=== PATIENT | female | born 1945 | race Caucasian/White ===

== ENCOUNTER 2018-10-05 15:37 | Emergency (ER) | payer MEDICARE ==
[~2018-10-05] VITALS: Ht 165.1 cm; Wt 72.0 kg
[~2018-10-05 15:37] MED LIST: ACET-343 PO; ASPI-611 PO; ATOR20TA66 PO; CHOL100046 PO; DICY20TA17 PO; DILT120C51 PO; FOLI0.4T2 PO; GABA-530 PO; HYDR-3973 PO; MECL12.584 PO; MSC30T PO; ONDA4TAB6 PO; PANT40TA4 PO
[2018-10-05 15:44] VITALS: BP 149/53
== END 2018-10-05 16:56 | disposition home or self-care (01) ==
LOC: ER 15:37
DX: S92.355A Nondisplaced fracture of fifth metatarsal bone, left foot, initial encounter for closed fracture (principal); M19.90 Unspecified osteoarthritis, unspecified site; Z88.0 Allergy status to penicillin; Z88.5 Allergy status to narcotic agent; Z79.82 Long term (current) use of aspirin; Z79.899 Other long term (current) drug therapy; Z86.73 Personal history of transient ischemic attack (TIA), and cerebral infarction without residual deficits; Z95.1 Presence of aortocoronary bypass graft; Z98.890 Other specified postprocedural states; W18.09XA Striking against other object with subsequent fall, initial encounter; Y93.89 Activity, other specified; Y92.098 Other place in other non-institutional residence as the place of occurrence of the external cause; Y99.8 Other external cause status
CPT/HCPCS: 29515; 73630; 99284

== ENCOUNTER 2018-10-27 10:54 | Emergency (ER) | payer MEDICARE ==
[~2018-10-27] VITALS: Ht 177.8 cm; Wt 75.0 kg
[2018-10-27] MEDS ORDERED: ondansetron/PF 4mg/2ml inj IV ONE (12:05)
[2018-10-27] MEDS ORDERED: morphine 4 MG/ML inj SYRINge IV PRN (12:05)
[2018-10-27] MEDS ORDERED: ondansetron 4mg rapidly disintigrating tab PO ONE (12:25)
[2018-10-27] MEDS ORDERED: morphine 4 MG/ML inj SYRINge IM ONE (12:25)
[2018-10-27 12:39] LABS: BASOPHILS # (AUTO) 0.1 X10'3 (0-0.2); EOSINOPHILS # (AUTO) 0.3 X10'3 (0-0.9); HEMOGLOBIN 12.8 g/dl (12.0-16.0); LYMPHOCYTES # (AUTO) 5.6 X10'3 (1.1-4.8); NEUTROPHILS # (AUTO) 1.8 X10'3 (1.8-7.7)
[2018-10-27 12:40] LABS: BASOPHILS % (AUTO) 1.2 % (0-1); EOSINOPHILS % (AUTO) 3.4 % (0-6); LYMPHOCYTES % (AUTO) 66.5 % (21-51); MEAN CORPUSCULAR HEMOGLOBIN 30.7 PG (27.0-31.0); MEAN CORPUSCULAR HGB CONC 33.7 g/dL (33.0-36.5); MEAN CORPUSCULAR VOLUME 91.1 FL (78-98); MEAN PLATELET VOLUME 8.5 FL (7.4-10.4); MONOCYTES # (AUTO) 0.6 X10'3 (0-0.9); MONOCYTES % (AUTO) 7.7 % (2-12); NEUTROPHILS % (AUTO) 21.2 % (42-75); PLATELET COUNT 252 X10'3 (140-440); RED BLOOD COUNT 4.17 X10'6 (4.20-5.60); RED CELL DISTRIBUTION WIDTH 13.5 % (11.5-14.5); WHITE BLOOD COUNT 8.4 X10'3 (4.5-11.0)
[2018-10-27 12:51] LABS: ALANINE AMINOTRANSFERASE 18 U/L (12-78); ALBUMIN 3.5 G/DL (3.4-5.0); ALBUMIN/GLOBULIN RATIO 1.1 (1.1-1.5); ALKALINE PHOSPHATASE 74 IU/L (46-116); ANION GAP 11 (8-16); ASPARTATE AMINO TRANSFERASE 13 U/L (10-37); BILIRUBIN,TOTAL 0.5 MG/DL (0.1-1.0); BLOOD UREA NITROGEN 8 MG/DL (7-18); BUN/CREATININE RATIO 7.8 (6.6-38.0); CALCIUM 9.3 MG/DL (8.5-10.1); CHLORIDE 108 MMOL/L (99-107); CREATININE 1.02 MG/DL (0.40-0.90); GLUCOSE 98 MG/DL (70-104); POTASSIUM 3.7 MMOL/L (3.5-5.1); SODIUM 144 MMOL/L (135-145); TOTAL CARBON DIOXIDE 25.5 MMOL/L (24-32); TOTAL PROTEIN 6.8 G/DL (6.4-8.2); eGFR 53 ML/MIN
[2018-10-27 12:52] VITALS: BP 126/58
[2018-10-27 14:34] LABS: TOTAL CELLS COUNTED 100
[2018-10-27 14:38] LABS: PLATELET ESTIMATE NORMAL
[2018-10-27 14:39] LABS: SMUDGE CELLS 1+
== END 2018-10-27 13:42 | disposition home or self-care (01) ==
LOC: ER 10:54
DX: S09.8XXA Other specified injuries of head, initial encounter (principal); M19.90 Unspecified osteoarthritis, unspecified site; Z88.0 Allergy status to penicillin; Z88.1 Allergy status to other antibiotic agents; Z88.6 Allergy status to analgesic agent; Z79.82 Long term (current) use of aspirin; Z79.899 Other long term (current) drug therapy; Z86.73 Personal history of transient ischemic attack (TIA), and cerebral infarction without residual deficits; Z95.0 Presence of cardiac pacemaker; W18.09XA Striking against other object with subsequent fall, initial encounter; Y93.89 Activity, other specified; Y92.89 Other specified places as the place of occurrence of the external cause; Y99.8 Other external cause status
CPT/HCPCS: 36415; 70450; 71045; 80053; 83735; 83880; 84484; 85025; 93005; 96372; 99284; J2270

== ENCOUNTER 2018-10-28 12:17 | Emergency (ER) | payer MEDICARE ==
[~2018-10-28] VITALS: Ht 165.1 cm; Wt 63.0 kg
[2018-10-28] MEDS ORDERED: metoclopramide 5 mg/ml inj IV ONE (13:00)
[2018-10-28] MEDS ORDERED: diphenhydrAMINE 50 mg/ml inj IV ONE (13:00)
[2018-10-28] MEDS ORDERED: ketorolac tromethamine 15mg/ml inj. IV ONE (13:00)
[2018-10-28 13:08] VITALS: BP 117/60
== END 2018-10-28 14:16 | disposition home or self-care (01) ==
LOC: ER 12:18
DX: G43.909 Migraine, unspecified, not intractable, without status migrainosus (principal); R11.2 Nausea with vomiting, unspecified; M19.90 Unspecified osteoarthritis, unspecified site; Z86.73 Personal history of transient ischemic attack (TIA), and cerebral infarction without residual deficits; Z98.890 Other specified postprocedural states; Z95.0 Presence of cardiac pacemaker; Z88.0 Allergy status to penicillin; Z88.2 Allergy status to sulfonamides; Z88.5 Allergy status to narcotic agent; Z79.82 Long term (current) use of aspirin; Z79.899 Other long term (current) drug therapy
CPT/HCPCS: 96374; 96375; 99284; J1200; J1885; J2765

== ENCOUNTER 2018-11-08 16:15 | Emergency (ER) | payer MEDICARE ==
[~2018-11-08] VITALS: Ht 165.1 cm; Wt 75.0 kg
[2018-11-08] MEDS ORDERED: morphine 4 MG/ML inj SYRINge IV ONE ×2 (17:20→19:30)
[2018-11-08 17:33] LABS: ALANINE AMINOTRANSFERASE 13 U/L (12-78); ALBUMIN 3.4 G/DL (3.4-5.0); ALBUMIN/GLOBULIN RATIO 0.9 (1.1-1.5); ALKALINE PHOSPHATASE 75 IU/L (46-116); ANION GAP 14 (8-16); ASPARTATE AMINO TRANSFERASE 7 U/L (10-37); BILIRUBIN,TOTAL 0.4 MG/DL (0.1-1.0); BLOOD UREA NITROGEN 16 MG/DL (7-18); BUN/CREATININE RATIO 17.2 (6.6-38.0); CALCIUM 8.7 MG/DL (8.5-10.1); CHLORIDE 103 MMOL/L (99-107); CREATININE 0.93 MG/DL (0.40-0.90); GLUCOSE 106 MG/DL (70-104); LIPASE 53 U/L (73-393); POTASSIUM 3.7 MMOL/L (3.5-5.1); SODIUM 141 MMOL/L (135-145); TOTAL PROTEIN 7.2 G/DL (6.4-8.2); eGFR 59 ML/MIN
--- NOTE | 2018-11-08 17:38 | NUR ---
PT IS 73YO FEMALE C/O LLQ PAIN SINCE TUESDAY, +N/V, VOMITED 4X TODAY, "TUESDAY I HAD DIARRHEA ALL DAY...ABOUT 10 TIMES", +CHILLS, NO DYSURIA, PT IS REFUSING IV START BY ME, REQUESTING ULTRASOUND, "I WOULD LIKE TO BE STUCK ONLY ONCE", DILSHAD OCAMPO AT BEDSIDE WITH ULTRASOUND
[2018-11-08 17:52] LABS: HEMOGLOBIN 13.1 g/dl (12.0-16.0); WHITE BLOOD COUNT 12.9 X10'3 (4.5-11.0)
[2018-11-08 17:53] LABS: BASOPHILS # (AUTO) 0.1 X10'3 (0-0.2); BASOPHILS % (AUTO) 0.7 % (0-1); EOSINOPHILS % (AUTO) 0.3 % (0-6); HEMATOCRIT 39.1 % (35.0-45.0); LYMPHOCYTES # (AUTO) 3.4 X10'3 (1.1-4.8); LYMPHOCYTES % (AUTO) 26.7 % (21-51); MEAN CORPUSCULAR HEMOGLOBIN 30.1 PG (27.0-31.0); MEAN CORPUSCULAR HGB CONC 33.5 g/dL (33.0-36.5); MEAN CORPUSCULAR VOLUME 89.9 FL (78-98); MEAN PLATELET VOLUME 8.9 FL (7.4-10.4); MONOCYTES # (AUTO) 1.3 X10'3 (0-0.9); MONOCYTES % (AUTO) 9.7 % (2-12); NEUTROPHILS # (AUTO) 8.1 X10'3 (1.8-7.7); NEUTROPHILS % (AUTO) 62.6 % (42-75); PLATELET COUNT 282 X10'3 (140-440); RED CELL DISTRIBUTION WIDTH 13.6 % (11.5-14.5)
--- NOTE | 2018-11-08 17:53 | NUR ---
UNABLE TO START IV WITH ULTRASOUND, DR CARDOSO AWARE
[2018-11-08 17:54] LABS: RED BLOOD COUNT 4.35 X10'6 (4.20-5.60)
[2018-11-08] MEDS ORDERED: iohexol 300mg/ml 100ml inj. ONE (18:15)
[2018-11-08 19:07] LABS: CLARITY,URINE SLIGHTLY CLOUDY (Clear); COLOR,URINE YELLOW (Yellow); GLUCOSE, URINE NEGATIVE (Neg); KETONES,URINE NEGATIVE (Neg); LEUKOCYTE ESTERASE ,URINE NEGATIVE (Neg); NITRITES, URINE NEGATIVE (Neg); OCCULT BLOOD,URINE TRACE-INTACT (Neg); PROTEIN,URINE NEGATIVE (Neg); UROBILINOGEN,URINE 0.2 E.U/dL (0.2-1.0)
[2018-11-08 19:10] LABS: UA COLLECTION TYPE CLN CATCH MIDSTREAM
[2018-11-08 19:28] LABS: BACTERIA,URINE 2+ /HPF (Neg); MUCUS STRANDS NONE SEEN /LPF (Neg); RBC,URINE 0-2 /HPF (0-2); SQUAMOUS EPITHELIAL CELL,UR MANY /LPF (FEW); WBC,URINE NONE SEEN /HPF (0-4)
[2018-11-08] MEDS ORDERED: magnesium citrate 296ml oral solution PO ONE (19:45)
[2018-11-08] MEDS ORDERED: ciprofloxacin 250mg tablet PO ONE (19:45)
[2018-11-08] MEDS ORDERED: metroNIDAZOLE 500mg tablet PO ONE (19:45)
[2018-11-08] MEDS ORDERED: metroNIDAZOLE-Flagyl 500mg/NS 100 ML IV ONE (19:50)
[2018-11-08] MEDS ORDERED: levoFLOXACIN-Levaquin 750MG/D5 150 ML IV ONE (19:50)
--- NOTE | 2018-11-08 20:12 | NUR ---
PT IS RESTING QUIETLY ON FAMILY ALECIA AT BEDSIDE,
--- NOTE | 2018-11-08 20:27 | NUR ---
PT HAS MAG CITRATE ORDERED, REPROTS SHE DOES NOT WANT TO TAKE IT WHILE HERE AND WILL TAKE IT WHEN SHE GOES HOME. DR. MAI UPDATED.
--- NOTE | 2018-11-08 20:30 | NUR ---
DR. MAI UPDATED THAT PT REFUSED MAG CITRATE, PT IS DC READY , BUT MED WAIT CURRENTLY FOR IV MEDS.
--- NOTE | 2018-11-08 21:10 | NUR ---
PT C/O HEADACHE 09/30, ASKING FOR ASAEL, LEVAQUIN IS INFUSING VIA PUMP
[2018-11-08] MEDS ORDERED: acetaminophen 325mg tablet PO ONE (21:25)
--- NOTE | 2018-11-08 21:25 | NUR ---
Dr Ingram gave verbal order for tylenol 975mg PO x1, gave pt apple juice and karen crackers, edwin well, no n/v
[2018-11-08] MEDS ORDERED: CIPR-230 PO (22:05)
[2018-11-08] MEDS ORDERED: METR-159 PO (22:05)
[2018-11-08 22:42] VITALS: BP 143/72
== END 2018-11-08 22:44 | disposition home or self-care (01) ==
LOC: ER 16:16
DX: K52.9 Noninfective gastroenteritis and colitis, unspecified (principal); K59.00 Constipation, unspecified; G43.909 Migraine, unspecified, not intractable, without status migrainosus; M19.90 Unspecified osteoarthritis, unspecified site; Z86.73 Personal history of transient ischemic attack (TIA), and cerebral infarction without residual deficits; Z95.0 Presence of cardiac pacemaker; Z98.890 Other specified postprocedural states; Z87.891 Personal history of nicotine dependence; Z88.0 Allergy status to penicillin; Z88.2 Allergy status to sulfonamides; Z88.5 Allergy status to narcotic agent; Z79.82 Long term (current) use of aspirin; Z79.2 Long term (current) use of antibiotics; Z79.899 Other long term (current) drug therapy
CPT/HCPCS: 36415; 74177; 80053; 81001; 83690; 85025; 85610; 96365; 96367; 96375; 96376; 99284; J1956; J2270; J3490; Q9967

== ENCOUNTER 2018-11-13 13:41 | Observation (INO) | payer MEDICARE ==
[~2018-11-13] VITALS: Ht 160 cm; Wt 78.4 kg
[~2018-11-13 13:41] MED LIST changes: +CIPR-230 PO; +METR-159 PO
[2018-11-13] MEDS ORDERED: aspirin 81mg tab.chew PO ONE (13:50)
[2018-11-13] MEDS: nitroGLYCERIN 0.4mg SUBLingual tab SL PRN ×3 (14:05→14:17)
--- NOTE | 2018-11-13 14:12 | NUR ---
Pt reports chest pain decreased from 9 to 8 following first ntg sl dose. Second dose given now.
[2018-11-13 14:19] LABS: BASOPHILS # (AUTO) 0.1 X10'3 (0-0.2); BASOPHILS % (AUTO) 1.1 % (0-1); EOSINOPHILS # (AUTO) 0.2 X10'3 (0-0.9); EOSINOPHILS % (AUTO) 1.7 % (0-6); HEMATOCRIT 40.2 % (35.0-45.0); HEMOGLOBIN 13.9 g/dl (12.0-16.0); LYMPHOCYTES # (AUTO) 3.4 X10'3 (1.1-4.8); LYMPHOCYTES % (AUTO) 35.1 % (21-51); MEAN CORPUSCULAR HEMOGLOBIN 31.3 PG (27.0-31.0); MEAN CORPUSCULAR HGB CONC 34.6 g/dL (33.0-36.5); MEAN CORPUSCULAR VOLUME 90.4 FL (78-98); MEAN PLATELET VOLUME 8.5 FL (7.4-10.4); MONOCYTES # (AUTO) 1.3 X10'3 (0-0.9); MONOCYTES % (AUTO) 12.9 % (2-12); NEUTROPHILS # (AUTO) 4.8 X10'3 (1.8-7.7); NEUTROPHILS % (AUTO) 49.2 % (42-75); PLATELET COUNT 312 X10'3 (140-440); RED BLOOD COUNT 4.45 X10'6 (4.20-5.60); RED CELL DISTRIBUTION WIDTH 13.1 % (11.5-14.5); WHITE BLOOD COUNT 9.7 X10'3 (4.5-11.0)
[2018-11-13 14:36] LABS: ALANINE AMINOTRANSFERASE 18 U/L (12-78); ALBUMIN 3.5 G/DL (3.4-5.0); ALBUMIN/GLOBULIN RATIO 0.9 (1.1-1.5); ALKALINE PHOSPHATASE 74 IU/L (46-116); ANION GAP 8 (8-16); ASPARTATE AMINO TRANSFERASE 16 U/L (10-37); BILIRUBIN,TOTAL 0.3 MG/DL (0.1-1.0); CALCIUM 8.7 MG/DL (8.5-10.1); CHLORIDE 107 MMOL/L (99-107); CREATININE 0.98 MG/DL (0.40-0.90); GLUCOSE 85 MG/DL (70-104); MAGNESIUM 1.9 MG/DL (1.5-2.4); POTASSIUM 3.7 MMOL/L (3.5-5.1); SODIUM 141 MMOL/L (135-145); TOTAL CARBON DIOXIDE 25.9 MMOL/L (24-32); TOTAL PROTEIN 7.3 G/DL (6.4-8.2); eGFR 56 ML/MIN
[2018-11-13 14:41] LABS: BLOOD UREA NITROGEN 10 MG/DL (7-18); BUN/CREATININE RATIO 10.2 (6.6-38.0)
[2018-11-13] MEDS ORDERED: ondansetron/PF 4mg/2ml inj IV ONE (15:05)
[2018-11-13] MEDS ORDERED: morphine 4 MG/ML inj SYRINge IV ONE (15:05)
[2018-11-13] MEDS ORDERED: mag hydrox/Alum hydrox/simeth 30ml oral suspension PO PRN (15:55)
[2018-11-13] MEDS ORDERED: morphine 2 MG/ML inj. syringe IV PRN ×2 (15:55)
[2018-11-13] MEDS ORDERED: acetaminophen 325mg tablet PO PRN (15:55)
[2018-11-13] MEDS ORDERED: magnesium hydroxide 30ml (MOM) UD suspension PO PRN (15:55)
--- NOTE | 2018-11-13 16:02 | NUR ---
Pharmacist is going to speak with the patient regarding the medication reconcilliation for the admission process. Pt is aware of the plan of care including admission.
[2018-11-13 16:35] LABS: HEMOGLOBIN A1C 5.8 % (4.5-6.2)
[2018-11-13] MEDS ORDERED: METR500T PO (16:55)
[2018-11-13] MEDS ORDERED: CIPR500T5 PO (16:55)
[2018-11-13] MEDS ORDERED: aspirin/acetaminophen/caffeine tablet PO PRN (17:50)
[2018-11-13] MEDS ORDERED: HYDROcodone/acetaminophen 10/325mg tab PO PRN (17:55)
[2018-11-13] MEDS ORDERED: HYDROcodone/acetaminophen 5mg/325mg tablet PO PRN (17:55)
[2018-11-13] MEDS: HYDROcodone/acetaminophen 10/325mg tab PO PRN (18:22)
[2018-11-13] MEDS: dicyclomine 10 MG capsule PO SCH ×2 (19:31→20:05)
[2018-11-13] MEDS: morphine ER 30mg tablet PO SCH (20:05)
[2018-11-13] MEDS: pantoprazole 40mg Tablet.DR PO SCH (20:06)
[2018-11-13] MEDS: atorvastatin 20mg tablet PO SCH (20:06)
[2018-11-13 21:00] VITALS: BP 137/67
[2018-11-13] MEDS ORDERED: MELA3TAB64 PO (21:39)
--- NOTE | 2018-11-13 21:53 | NUR ---
I received patient report from Nolan ED RN. at 2035. Plan of care was discussed. Patient arrived via gurney with RN transporting. She was not in any apparent distress. Belongings were with the patient
[2018-11-13] MEDS: Melatonin 3mg tablet PO SCH (22:46)
[2018-11-14 00:23] VITALS: BP 115/50
[2018-11-14] MEDS: ondansetron/PF 4mg/2ml inj IV PRN ×2 (00:31→11:00)
[2018-11-14 03:15] VITALS: BP 144/60
--- NOTE | 2018-11-14 04:12 | NUR ---
0315 : pt found on floor by tech. Patient states that she felt dizzy on her way back from going to the toilet and fell. She states that she hit her head on the floor. Forehead, it is reddened medial near right eyebrow. VSS: 144/60 R 18, HR:69, 98RA. Neuro check was done. Patient also complains of left forearm hurting,. Bed alarm has been turned on, Dr notified. He told me to do neuro checks again in two hours. Did not want x-rays at this time. Tylenol given for headache. Will continue to monitor
--- NOTE | 2018-11-14 04:17 | NUR ---
Patient was educated on using the call light when needing to get up for any reason. Fall risk band was put on patients right wrist.
[2018-11-14] MEDS: HYDROcodone/acetaminophen 10/325mg tab PO PRN ×2 (05:22)
--- NOTE | 2018-11-14 06:30 | NUR ---
Patient in room [facility]. I have received report from TERRENCE Fernando and had the opportunity to ask questions and assume patient care.
--- NOTE | 2018-11-14 06:46 | NUR ---
Problems reprioritized. Patient report given, questions answered & plan of care reviewed with TERRENCE Arcos and TERRENCE Diaz.
[2018-11-14 07:26] VITALS: BP 111/60
[2018-11-14] MEDS ORDERED: HYDROcodone/acetaminophen 10/325mg tab PO SCH (08:00)
[2018-11-14] MEDS ORDERED: meclizine 12.5mg tablet PO PRN (08:55)
[2018-11-14 09:00] VITALS: BP_SYST 113; BP_SYST 118; BP_SYST 120; BP_DIAS 65; BP_DIAS 69; BP_DIAS 88
[2018-11-14] MEDS: dicyclomine 10 MG capsule PO SCH ×2 (09:10→19:32)
[2018-11-14] MEDS: pantoprazole 40mg Tablet.DR PO SCH ×2 (09:11→19:32)
[2018-11-14] MEDS: folic acid 0.4mg tablet PO SCH (09:11)
[2018-11-14] MEDS: vitamin D (cholecalciferol) 1,000 unit tablet PO SCH (09:12)
[2018-11-14] MEDS: aspirin 81mg tab.chew PO SCH (09:12)
[2018-11-14] MEDS: morphine ER 30mg tablet PO SCH ×2 (09:12→19:31)
[2018-11-14] MEDS: diltiazem CD 120mg capsule (once-daily) PO SCH (09:13)
[2018-11-14 11:29] VITALS: BP 135/63
--- NOTE | 2018-11-14 14:04 | NUR ---
Malnutrition consult: Pt seen at bedside reports low appetite x months with wt loss of 20-30 lbs in two months. Pt reports UBW of 110 lbs however per documented wt hx UBW is around 158 lbs, patient is currently 172 lbs. Unsure if pt truly had any wt loss based on past documented weights. Pt currently on heart healthy diet documented with 25% PO intake of meal and 100% PO intake of milk at breakfast. Pt reports N/V, receiving Zofran PRN last given today. Pt denies ONS, Ensure pudding, gelatin, or any food preferences at this time other than requests no bananas, d/w dietary. Pt with no decrease in muscle strength or edema. Pt with no visible fat or muscle wasting. Pt currently lacks a minimum of two criteria for malnutrition. Pt denies food allergies or difficulty chewing/swallowing. LBM 11/13. Pt reports previously with diarrhea x 5 days however now resolved. Pt provided with verbal nutrition therapy for diarrhea and RD contact information. Will continue to follow. Addendum: 11/14/18 at [address] Amended: Links added.
--- NOTE | 2018-11-14 18:37 | NUR ---
Problems reprioritized. Patient report given, questions answered & plan of care reviewed with Prudence RN.
--- NOTE | 2018-11-14 18:46 | NUR ---
Patient in room [facility]. I have received report from Josselyn OCAMPO and had the opportunity to ask questions and assume patient care. Patient just finished having dinner and is pleasant and shows no sign of discomfort.
[2018-11-14 19:00] VITALS: BP 120/57
[2018-11-14] MEDS: atorvastatin 20mg tablet PO SCH (21:52)
[2018-11-14] MEDS: Melatonin 3mg tablet PO SCH (21:52)
[2018-11-15] VITALS: BP_SYST 101; BP_SYST 124; BP_SYST 132; BP_DIAS 53; BP_DIAS 62; BP_DIAS 64
--- NOTE | 2018-11-15 06:26 | NUR ---
Patient in room [facility]. I have received report from TERRENCE Lemus and had the opportunity to ask questions and assume patient care.
--- NOTE | 2018-11-15 06:31 | NUR ---
Problems reprioritized. Patient report given, questions answered & plan of care reviewed with Yen OCAMPO. Patient went to use the bathroom and is now back in bed resting.
[2018-11-15 08:11] VITALS: BP 121/58
[2018-11-15] MEDS: aspirin 81mg tab.chew PO SCH (08:31)
[2018-11-15] MEDS: folic acid 0.4mg tablet PO SCH (08:32)
[2018-11-15] MEDS: pantoprazole 40mg Tablet.DR PO SCH (08:33)
[2018-11-15] MEDS: morphine ER 30mg tablet PO SCH (08:33)
[2018-11-15] MEDS: diltiazem CD 120mg capsule (once-daily) PO SCH (08:33)
[2018-11-15] MEDS: vitamin D (cholecalciferol) 1,000 unit tablet PO SCH (08:34)
[2018-11-15] MEDS: dicyclomine 10 MG capsule PO SCH (08:34)
--- NOTE | 2018-11-15 09:12 | NUR ---
Student Medication Administration: For this medication-pass time frame, all medication were reviewed, dispensed, administered and documented per hospital policy by Ja ARANGO [facility].
[2018-11-15 11:00] VITALS: BP 109/41
--- NOTE | 2018-11-15 17:33 | NUR ---
Patient discharged home via taxi and taken from unit via wheelchair with x1 staff. PIV removed with cannula intact. All belongings left with patient including discharge instructions. Patient stated an understanding of instructions. Patient was given time for questions and answers. Patient discharged was delayed due to waiting on a ride. Patient's was to pick patient up after dialysis but it ran long and then he had complications and this delayed his arrival. Patient stated not having anyone else that could come and get her and also stated not having any money for a taxi. So a taxi ride was provided for her. Patient discharged alert, oriented and in no apparent distress. No new prescriptions at time of discharge.
== END 2018-11-15 16:56 | disposition home or self-care (01) ==
LOC: ER 13:42 → SUR 3N 20:55
PROVIDERS: ADMIT Internal Medicine; ATTEND Internal Medicine
DX: R07.89 Other chest pain (principal); I10 Essential (primary) hypertension; E78.5 Hyperlipidemia, unspecified; I49.5 Sick sinus syndrome; G89.29 Other chronic pain; M19.90 Unspecified osteoarthritis, unspecified site; Z95.0 Presence of cardiac pacemaker; Z90.710 Acquired absence of both cervix and uterus; Z87.891 Personal history of nicotine dependence; Z86.73 Personal history of transient ischemic attack (TIA), and cerebral infarction without residual deficits; Z79.891 Long term (current) use of opiate analgesic; Z79.82 Long term (current) use of aspirin; Z79.899 Other long term (current) drug therapy; Z88.0 Allergy status to penicillin; Z88.5 Allergy status to narcotic agent
CPT/HCPCS: 36415; 71045; 80053; 83036; 83735; 83880; 84484; 85025; 87081; 93005; 96374; 96375; 96376; 99284; G0378; J2270; J2405; J8597

== ENCOUNTER 2019-06-25 15:11 | Emergency (ER) | payer MEDICARE ==
[~2019-06-25] VITALS: Ht 165.1 cm; Wt 69.1 kg
[~2019-06-25 15:11] MED LIST changes: -CIPR-230 PO; +CIPR500T5 PO; -GABA-530 PO; +MECL-184 PO; -MECL12.584 PO; +MELA3TAB39 PO; -METR-159 PO; +METR500T PO; -ONDA4TAB6 PO
[2019-06-25 15:36] LABS: BASOPHILS # (AUTO) 0.1 X10'3 (0-0.2); BASOPHILS % (AUTO) 0.7 % (0-1); EOSINOPHILS # (AUTO) 0.1 X10'3 (0-0.9); EOSINOPHILS % (AUTO) 1.3 % (0-6); HEMATOCRIT 44.1 % (35.0-45.0); HEMOGLOBIN 14.7 g/dl (12.0-16.0); LYMPHOCYTES # (AUTO) 3.6 X10'3 (1.1-4.8); LYMPHOCYTES % (AUTO) 41.2 % (21-51); MEAN CORPUSCULAR HGB CONC 33.3 g/dL (33.0-36.5); MEAN CORPUSCULAR VOLUME 93.1 FL (78-98); MEAN PLATELET VOLUME 8.5 FL (7.4-10.4); MONOCYTES # (AUTO) 0.7 X10'3 (0-0.9); MONOCYTES % (AUTO) 8.2 % (2-12); NEUTROPHILS # (AUTO) 4.3 X10'3 (1.8-7.7); NEUTROPHILS % (AUTO) 48.6 % (42-75); PLATELET COUNT 349 X10'3 (140-440); RED BLOOD COUNT 4.74 X10'6 (4.20-5.60); RED CELL DISTRIBUTION WIDTH 14.4 % (11.5-14.5); WHITE BLOOD COUNT 8.8 X10'3 (4.5-11.0)
[2019-06-25 15:50] LABS: ALANINE AMINOTRANSFERASE 12 U/L (12-78); ALBUMIN 3.8 G/DL (3.4-5.0); ALKALINE PHOSPHATASE 73 IU/L (46-116); ANION GAP 10 (8-16); ASPARTATE AMINO TRANSFERASE 13 U/L (10-37); BILIRUBIN,TOTAL 0.3 MG/DL (0.1-1.0); BLOOD UREA NITROGEN 10 MG/DL (7-18); BUN/CREATININE RATIO 10.4 (6.6-38.0); CALCIUM 9.5 MG/DL (8.5-10.1); CHLORIDE 102 MMOL/L (99-107); CREATININE 0.96 MG/DL (0.40-0.90); GLUCOSE 127 MG/DL (70-104); POTASSIUM 3.8 MMOL/L (3.5-5.1); SODIUM 137 MMOL/L (135-145); TOTAL CARBON DIOXIDE 25.2 MMOL/L (24-32); TOTAL PROTEIN 7.7 G/DL (6.4-8.2); eGFR 57 ML/MIN
[2019-06-25 16:10] VITALS: BP 143/78
[2019-06-25] MEDS ORDERED: ondansetron 4mg rapidly disintigrating tab PO ONE (16:25)
[2019-06-25] MEDS ORDERED: ONDA4TAB6 PO (16:45)
== END 2019-06-25 17:02 | disposition home or self-care (01) ==
LOC: ER 15:11
DX: R53.81 Other malaise (principal); R11.2 Nausea with vomiting, unspecified; J02.9 Acute pharyngitis, unspecified; R07.89 Other chest pain; R53.1 Weakness; R05 Cough; R10.9 Unspecified abdominal pain; M19.90 Unspecified osteoarthritis, unspecified site; Z86.73 Personal history of transient ischemic attack (TIA), and cerebral infarction without residual deficits; Z95.0 Presence of cardiac pacemaker; Z98.890 Other specified postprocedural states; Z88.0 Allergy status to penicillin; Z88.2 Allergy status to sulfonamides; Z88.5 Allergy status to narcotic agent; Z79.82 Long term (current) use of aspirin; Z79.899 Other long term (current) drug therapy
CPT/HCPCS: 36415; 71045; 80053; 84484; 85025; 93005; 99285

== ENCOUNTER 2019-07-21 16:07 | Emergency (ER) | payer MEDICARE ==
[~2019-07-21] VITALS: Ht 165.1 cm; Wt 63.6 kg
[~2019-07-21 16:07] MED LIST changes: +ONDA4TAB6 PO
[2019-07-21] MEDS ORDERED: normal saline 1000ml 1,000 ML IV ONE (18:00)
[2019-07-21] MEDS ORDERED: morphine 4 MG/ML inj SYRINge IV ONE ×2 (18:05→20:05)
[2019-07-21] MEDS ORDERED: ondansetron/PF 4mg/2ml inj IV ONE (18:05)
[2019-07-21 18:29] LABS: BASOPHILS # (AUTO) 0.1 X10'3 (0-0.2); EOSINOPHILS # (AUTO) 0.1 X10'3 (0-0.9); HEMOGLOBIN 14.4 g/dl (12.0-16.0); MONOCYTES # (AUTO) 0.9 X10'3 (0-0.9); MONOCYTES % (AUTO) 9.2 % (2-12); NEUTROPHILS # (AUTO) 3.6 X10'3 (1.8-7.7); PLATELET COUNT 331 X10'3 (140-440)
[2019-07-21 18:31] LABS: BASOPHILS % (AUTO) 1.2 % (0-1); EOSINOPHILS % (AUTO) 0.8 % (0-6); HEMATOCRIT 42.9 % (35.0-45.0); LYMPHOCYTES % (AUTO) 51.8 % (21-51); MEAN CORPUSCULAR HEMOGLOBIN 31.6 PG (27.0-31.0); MEAN CORPUSCULAR HGB CONC 33.5 g/dL (33.0-36.5); MEAN CORPUSCULAR VOLUME 94.4 FL (78-98); MEAN PLATELET VOLUME 8.1 FL (7.4-10.4); RED BLOOD COUNT 4.54 X10'6 (4.20-5.60); RED CELL DISTRIBUTION WIDTH 13.8 % (11.5-14.5); WHITE BLOOD COUNT 9.7 X10'3 (4.5-11.0)
[2019-07-21 18:45] LABS: ALANINE AMINOTRANSFERASE 28 U/L (12-78); ALBUMIN 4.3 G/DL (3.4-5.0); ALBUMIN/GLOBULIN RATIO 1.1 (1.1-1.5); ALKALINE PHOSPHATASE 69 IU/L (46-116); ANION GAP 9 (8-16); ASPARTATE AMINO TRANSFERASE 20 U/L (10-37); BILIRUBIN,TOTAL 0.6 MG/DL (0.1-1.0); BLOOD UREA NITROGEN 16 MG/DL (7-18); BUN/CREATININE RATIO 17.2 (6.6-38.0); CALCIUM 10.6 MG/DL (8.5-10.1); CHLORIDE 96 MMOL/L (99-107); CREATININE 0.93 MG/DL (0.40-0.90); GLUCOSE 112 MG/DL (70-104); LIPASE 259 U/L (73-393); POTASSIUM 4.1 MMOL/L (3.5-5.1); SODIUM 132 MMOL/L (135-145); TOTAL CARBON DIOXIDE 26.7 MMOL/L (24-32); TOTAL PROTEIN 8.1 G/DL (6.4-8.2); eGFR 59 ML/MIN
[2019-07-21 19:26] LABS: CLARITY,URINE SLIGHTLY CLOUDY (Clear); COLOR,URINE YELLOW (Yellow); GLUCOSE, URINE NEGATIVE (Neg); KETONES,URINE NEGATIVE (Neg); LEUKOCYTE ESTERASE ,URINE NEGATIVE (Neg); NITRITES, URINE NEGATIVE (Neg); OCCULT BLOOD,URINE TRACE-INTACT (Neg); PROTEIN,URINE NEGATIVE (Neg); UROBILINOGEN,URINE 0.2 E.U/dL (0.2-1.0)
[2019-07-21 19:31] LABS: UA COLLECTION TYPE CLN CATCH MIDSTREAM
[2019-07-21 19:32] LABS: BACTERIA,URINE FEW /HPF (Neg); RBC,URINE 0-2 /HPF (0-2); SQUAMOUS EPITHELIAL CELL,UR MODERATE /LPF (FEW); WBC,URINE 0-4 /HPF (0-4)
[2019-07-21] MEDS ORDERED: HYDR-4383 PO (20:43)
[2019-07-21] MEDS ORDERED: ONDA4TAB6 PO (20:43)
[2019-07-21] MEDS ORDERED: proCHLORperazine 10 MG/2 ml inj IM ONE ×2 (20:50)
[2019-07-21] MEDS ORDERED: diphenhydrAMINE 50 mg/ml inj IM ONE ×2 (20:50)
[2019-07-21 20:55] VITALS: BP 149/77
== END 2019-07-21 21:01 | disposition home or self-care (01) ==
LOC: ER 16:08
DX: K52.9 Noninfective gastroenteritis and colitis, unspecified (principal); G43.909 Migraine, unspecified, not intractable, without status migrainosus; M19.90 Unspecified osteoarthritis, unspecified site; R42 Dizziness and giddiness; Z95.0 Presence of cardiac pacemaker; Z98.890 Other specified postprocedural states; Z88.0 Allergy status to penicillin; Z88.2 Allergy status to sulfonamides; Z88.5 Allergy status to narcotic agent; Z79.82 Long term (current) use of aspirin; Z79.899 Other long term (current) drug therapy
CPT/HCPCS: 71045; 73560; 74176; 80053; 81001; 83690; 84484; 85025; 93005; 96361; 96372; 96374; 96375; 96376; 99285; J0780; J1200; J2270; J2405; J7030

== ENCOUNTER 2019-08-13 13:26 | Emergency (ER) | payer MEDICARE ==
[~2019-08-13] VITALS: Ht 165.1 cm; Wt 65.9 kg
[~2019-08-13 13:26] MED LIST changes: +HYDR-4383 PO
[2019-08-13 15:17] LABS: BASOPHILS # (AUTO) 0.1 X10'3 (0-0.2); EOSINOPHILS # (AUTO) 0.2 X10'3 (0-0.9); LYMPHOCYTES # (AUTO) 4.4 X10'3 (1.1-4.8); MONOCYTES # (AUTO) 0.7 X10'3 (0-0.9); RED CELL DISTRIBUTION WIDTH 12.8 % (11.5-14.5)
[2019-08-13 15:20] LABS: BASOPHILS % (AUTO) 1.2 % (0-1); EOSINOPHILS % (AUTO) 2.1 % (0-6); HEMATOCRIT 41.1 % (35.0-45.0); HEMOGLOBIN 13.8 g/dl (12.0-16.0); LYMPHOCYTES % (AUTO) 58.9 % (21-51); MEAN CORPUSCULAR HEMOGLOBIN 31.5 PG (27.0-31.0); MEAN CORPUSCULAR HGB CONC 33.5 g/dL (33.0-36.5); MEAN PLATELET VOLUME 8.5 FL (7.4-10.4); MONOCYTES % (AUTO) 9.9 % (2-12); NEUTROPHILS # (AUTO) 2.1 X10'3 (1.8-7.7); NEUTROPHILS % (AUTO) 27.9 % (42-75); PLATELET COUNT 282 X10'3 (140-440); RED BLOOD COUNT 4.37 X10'6 (4.20-5.60); WHITE BLOOD COUNT 7.4 X10'3 (4.5-11.0)
[2019-08-13 15:30] LABS: ALANINE AMINOTRANSFERASE 20 U/L (12-78); ALBUMIN 3.8 G/DL (3.4-5.0); ALBUMIN/GLOBULIN RATIO 1.1 (1.1-1.5); ALKALINE PHOSPHATASE 67 IU/L (46-116); ANION GAP 10 (8-16); ASPARTATE AMINO TRANSFERASE 17 U/L (10-37); BILIRUBIN,TOTAL 0.4 MG/DL (0.1-1.0); BLOOD UREA NITROGEN 10 MG/DL (7-18); BUN/CREATININE RATIO 10.6 (6.6-38.0); CALCIUM 9.1 MG/DL (8.5-10.1); CHLORIDE 104 MMOL/L (99-107); CREATININE 0.94 MG/DL (0.40-0.90); GLUCOSE 96 MG/DL (70-104); POTASSIUM 4.1 MMOL/L (3.5-5.1); SODIUM 141 MMOL/L (135-145); TOTAL CARBON DIOXIDE 26.7 MMOL/L (24-32); TOTAL PROTEIN 7.4 G/DL (6.4-8.2); eGFR 59 ML/MIN
[2019-08-13 15:46] LABS: PLATELET ESTIMATE NORMAL; TOTAL CELLS COUNTED 100
[2019-08-13] MEDS ORDERED: dexamethasone sod phosphate 10mg/ml inj IV STA (17:33)
[2019-08-13] MEDS ORDERED: normal saline 1000ML IV soln IVB ONE (17:35)
[2019-08-13] MEDS ORDERED: diphenhydrAMINE 50 mg/ml inj IV ONE (17:35)
[2019-08-13] MEDS ORDERED: proCHLORperazine 10 MG/2 ml inj IV ONE (17:35)
[2019-08-13] MEDS ORDERED: ketorolac tromethamine 15mg/ml inj. IV ONE (17:35)
[2019-08-13] MEDS ORDERED: morphine 4 MG/ML inj SYRINge IV ONE (19:25)
--- NOTE | 2019-08-13 19:26 | NUR ---
assumed care of patient while primary RN breaks. Pt c/o of headache and askin g for medication rated pain 7/10 . pt medicated as ordered with morphine .
--- NOTE | 2019-08-13 19:32 | NUR ---
Medication held as patient went to ct via [facility] chair will medicate patient once she returns from CT.
[2019-08-13 20:33] VITALS: BP 129/60
== END 2019-08-13 20:30 | disposition home or self-care (01) ==
LOC: ER 13:27
DX: G43.909 Migraine, unspecified, not intractable, without status migrainosus (principal); R42 Dizziness and giddiness; R11.2 Nausea with vomiting, unspecified; M19.90 Unspecified osteoarthritis, unspecified site; Z86.73 Personal history of transient ischemic attack (TIA), and cerebral infarction without residual deficits; Z95.0 Presence of cardiac pacemaker; Z88.0 Allergy status to penicillin; Z88.2 Allergy status to sulfonamides; Z88.5 Allergy status to narcotic agent; Z79.82 Long term (current) use of aspirin; Z79.899 Other long term (current) drug therapy
CPT/HCPCS: 36415; 70450; 71045; 80053; 84484; 85025; 93005; 96361; 96374; 96375; 99285; J0780; J1100; J1200; J1885; J2270; J7030

== ENCOUNTER 2019-09-09 16:15 | Emergency (ER) | payer MEDICARE ==
[~2019-09-09] VITALS: Ht 165.1 cm; Wt 65.9 kg
[2019-09-09 16:48] LABS: CLARITY,URINE CLEAR (Clear); COLOR,URINE YELLOW (Yellow); GLUCOSE, URINE NEGATIVE (Neg); KETONES,URINE NEGATIVE (Neg); LEUKOCYTE ESTERASE ,URINE NEGATIVE (Neg); NITRITES, URINE NEGATIVE (Neg); OCCULT BLOOD,URINE NEGATIVE (Neg); PH,URINE 7.5 (4.8-8.0); PROTEIN,URINE NEGATIVE (Neg); UROBILINOGEN,URINE 0.2 E.U/dL (0.2-1.0)
[2019-09-09 16:54] LABS: UA COLLECTION TYPE CLN CATCH MIDSTREAM
[2019-09-09 17:25] LABS: BASOPHILS # (AUTO) 0.1 X10'3 (0-0.2); BASOPHILS % (AUTO) 0.6 % (0-1); EOSINOPHILS % (AUTO) 0.3 % (0-6); HEMATOCRIT 44.5 % (35.0-45.0); HEMOGLOBIN 15.2 g/dl (12.0-16.0); LYMPHOCYTES # (AUTO) 3.6 X10'3 (1.1-4.8); LYMPHOCYTES % (AUTO) 35.8 % (21-51); MEAN CORPUSCULAR HEMOGLOBIN 31.4 PG (27.0-31.0); MEAN CORPUSCULAR HGB CONC 34.1 g/dL (33.0-36.5); MEAN CORPUSCULAR VOLUME 92.1 FL (78-98); MEAN PLATELET VOLUME 8.5 FL (7.4-10.4); MONOCYTES # (AUTO) 0.9 X10'3 (0-0.9); MONOCYTES % (AUTO) 9.4 % (2-12); NEUTROPHILS # (AUTO) 5.4 X10'3 (1.8-7.7); NEUTROPHILS % (AUTO) 53.9 % (42-75); PLATELET COUNT 367 X10'3 (140-440); RED BLOOD COUNT 4.83 X10'6 (4.20-5.60); RED CELL DISTRIBUTION WIDTH 13.1 % (11.5-14.5)
[2019-09-09 17:33] LABS: ALANINE AMINOTRANSFERASE 14 U/L (12-78); ALBUMIN 4.1 G/DL (3.4-5.0); ALBUMIN/GLOBULIN RATIO 1.1 (1.1-1.5); ALKALINE PHOSPHATASE 73 IU/L (46-116); ANION GAP 11 (8-16); ASPARTATE AMINO TRANSFERASE 8 U/L (10-37); BILIRUBIN,TOTAL 0.5 MG/DL (0.1-1.0); BLOOD UREA NITROGEN 8 MG/DL (7-18); BUN/CREATININE RATIO 8.2 (6.6-38.0); CALCIUM 9.6 MG/DL (8.5-10.1); CHLORIDE 104 MMOL/L (99-107); CREATININE 0.98 MG/DL (0.40-0.90); GLUCOSE 127 MG/DL (70-104); LIPASE 138 U/L (73-393); POTASSIUM 3.5 MMOL/L (3.5-5.1); SODIUM 139 MMOL/L (135-145); TOTAL CARBON DIOXIDE 23.9 MMOL/L (24-32); TOTAL PROTEIN 7.9 G/DL (6.4-8.2); eGFR 56 ML/MIN
[2019-09-09] MEDS ORDERED: ondansetron 4mg rapidly disintigrating tab PO ONE (19:00)
[2019-09-09] MEDS ORDERED: ketorolac trometh inj. 60 MG/2 ML VIAL IM ONE (19:00)
--- NOTE | 2019-09-09 19:09 | NUR ---
[phone]. Contact phone number for .
[2019-09-09] MEDS ORDERED: ONDA8TAB6 PO (20:03)
[2019-09-09] MEDS ORDERED: acetaminophen 325mg tablet PO ONE (20:05)
[2019-09-09] MEDS ORDERED: proCHLORperazine 10 MG/2 ml inj IM ONE (20:05)
[2019-09-09] MEDS ORDERED: SUMAtriptan succ. 6 MG/0.5ml vial SQ ONE (20:05)
[2019-09-09 20:36] VITALS: BP 177/88
== END 2019-09-09 21:08 | disposition home or self-care (01) ==
LOC: ER 16:16
DX: K52.9 Noninfective gastroenteritis and colitis, unspecified (principal); R11.10 Vomiting, unspecified; R19.7 Diarrhea, unspecified; G43.909 Migraine, unspecified, not intractable, without status migrainosus; M19.90 Unspecified osteoarthritis, unspecified site; Z86.73 Personal history of transient ischemic attack (TIA), and cerebral infarction without residual deficits; Z95.0 Presence of cardiac pacemaker; Z98.890 Other specified postprocedural states; Z88.0 Allergy status to penicillin; Z88.2 Allergy status to sulfonamides; Z88.5 Allergy status to narcotic agent; Z79.82 Long term (current) use of aspirin; Z79.899 Other long term (current) drug therapy
CPT/HCPCS: 36415; 74176; 80053; 81003; 83690; 85025; 96372; 99284; J0780; J1885; J3030

== ENCOUNTER 2019-09-18 10:32 | Emergency (ER) | payer MEDICARE ==
[~2019-09-18] VITALS: Ht 165.1 cm; Wt 69.1 kg
[~2019-09-18 10:32] MED LIST changes: +ONDA8TAB6 PO
[2019-09-18] MEDS ORDERED: ondansetron/PF 4mg/2ml inj IV ONE (12:25)
[2019-09-18] MEDS ORDERED: normal saline 1000ML IV soln IVB ONE ×2 (12:25→12:35)
[2019-09-18] MEDS ORDERED: dexamethasone sod phosphate 10mg/ml inj IV STA (12:33)
[2019-09-18] MEDS ORDERED: LORazepam 2 mg/ml vial IV ONE (12:35)
[2019-09-18] MEDS ORDERED: metoclopramide 5 mg/ml inj IV ONE (12:35)
[2019-09-18 12:42] LABS: BASOPHILS # (AUTO) 0.1 X10'3 (0-0.2); BASOPHILS % (AUTO) 1.3 % (0-1); EOSINOPHILS # (AUTO) 0.2 X10'3 (0-0.9); EOSINOPHILS % (AUTO) 3.3 % (0-6); HEMATOCRIT 42.3 % (35.0-45.0); HEMOGLOBIN 14.3 g/dl (12.0-16.0); LYMPHOCYTES # (AUTO) 3.2 X10'3 (1.1-4.8); LYMPHOCYTES % (AUTO) 45.6 % (21-51); MEAN CORPUSCULAR HEMOGLOBIN 31.2 PG (27.0-31.0); MEAN CORPUSCULAR HGB CONC 33.8 g/dL (33.0-36.5); MEAN CORPUSCULAR VOLUME 92.1 FL (78-98); MEAN PLATELET VOLUME 8.5 FL (7.4-10.4); MONOCYTES # (AUTO) 0.8 X10'3 (0-0.9); MONOCYTES % (AUTO) 11.5 % (2-12); NEUTROPHILS # (AUTO) 2.7 X10'3 (1.8-7.7); NEUTROPHILS % (AUTO) 38.3 % (42-75); PLATELET COUNT 284 X10'3 (140-440); RED BLOOD COUNT 4.59 X10'6 (4.20-5.60); RED CELL DISTRIBUTION WIDTH 13.7 % (11.5-14.5)
[2019-09-18 12:55] LABS: ALANINE AMINOTRANSFERASE 13 U/L (12-78); ALBUMIN 3.9 G/DL (3.4-5.0); ALKALINE PHOSPHATASE 75 IU/L (46-116); ANION GAP 7 (8-16); ASPARTATE AMINO TRANSFERASE 12 U/L (10-37); BILIRUBIN,TOTAL 0.2 MG/DL (0.1-1.0); BLOOD UREA NITROGEN 8 MG/DL (7-18); BUN/CREATININE RATIO 8.3 (6.6-38.0); CALCIUM 9.6 MG/DL (8.5-10.1); CHLORIDE 104 MMOL/L (99-107); CREATININE 0.96 MG/DL (0.40-0.90); GLUCOSE 96 MG/DL (70-104); SODIUM 137 MMOL/L (135-145); TOTAL CARBON DIOXIDE 25.8 MMOL/L (24-32); TOTAL PROTEIN 7.8 G/DL (6.4-8.2); eGFR 57 ML/MIN
[2019-09-18] MEDS ORDERED: ketorolac tromethamine 15mg/ml inj. IV ONE (13:20)
[2019-09-18] MEDS ORDERED: dexamethasone sod phosphate 10mg/ml inj PO STA (13:28)
[2019-09-18] MEDS ORDERED: ondansetron 4mg rapidly disintigrating tab PO ONE (13:30)
[2019-09-18] MEDS ORDERED: metoclopramide 10mg tablet PO ONE (13:30)
[2019-09-18] MEDS ORDERED: LORazepam 1 MG tablet PO ONE (13:30)
[2019-09-18] MEDS ORDERED: ketorolac trometh. 30mg/ml inj. IM ONE (13:35)
[2019-09-18 13:54] VITALS: BP 173/93
== END 2019-09-18 13:53 | disposition home or self-care (01) ==
LOC: ER 10:33
DX: G43.909 Migraine, unspecified, not intractable, without status migrainosus (principal); R42 Dizziness and giddiness; R55 Syncope and collapse; M19.90 Unspecified osteoarthritis, unspecified site; Z86.73 Personal history of transient ischemic attack (TIA), and cerebral infarction without residual deficits; Z95.0 Presence of cardiac pacemaker; Z98.890 Other specified postprocedural states; Z88.0 Allergy status to penicillin; Z88.2 Allergy status to sulfonamides; Z88.5 Allergy status to narcotic agent; Z79.82 Long term (current) use of aspirin; Z79.899 Other long term (current) drug therapy
CPT/HCPCS: 36415; 70450; 80053; 85025; 96372; 99284; J1100; J1885; J8597

== ENCOUNTER 2019-10-11 12:54 | Emergency (ER) | payer MEDICARE ==
[~2019-10-11] VITALS: Ht 165.1 cm; Wt 73.6 kg
[2019-10-11 13:23] VITALS: BP 164/97
[2019-10-11] MEDS ORDERED: DOXY100C76 PO (13:54)
== END 2019-10-11 14:06 | disposition home or self-care (01) ==
LOC: ER 12:54
DX: J32.9 Chronic sinusitis, unspecified (principal); J06.9 Acute upper respiratory infection, unspecified; G43.909 Migraine, unspecified, not intractable, without status migrainosus; M19.90 Unspecified osteoarthritis, unspecified site; Z86.73 Personal history of transient ischemic attack (TIA), and cerebral infarction without residual deficits; Z95.0 Presence of cardiac pacemaker; Z20.828 Contact with and (suspected) exposure to other viral communicable diseases; Z98.890 Other specified postprocedural states; Z88.0 Allergy status to penicillin; Z88.2 Allergy status to sulfonamides; Z88.5 Allergy status to narcotic agent; Z79.82 Long term (current) use of aspirin; Z79.899 Other long term (current) drug therapy
CPT/HCPCS: 36415; 87635; 99283

== ENCOUNTER 2019-10-17 15:22 | Emergency (ER) | payer MEDICARE ==
[~2019-10-17] VITALS: Ht 165.1 cm; Wt 75.0 kg
[~2019-10-17 15:22] MED LIST changes: +DOXY100C76 PO
[2019-10-17 16:06] LABS: BASOPHILS # (AUTO) 0.1 X10'3 (0-0.2); BASOPHILS % (AUTO) 1.1 % (0-1); EOSINOPHILS # (AUTO) 0.1 X10'3 (0-0.9); EOSINOPHILS % (AUTO) 0.6 % (0-6); HEMATOCRIT 40.3 % (35.0-45.0); HEMOGLOBIN 13.7 g/dl (12.0-16.0); LYMPHOCYTES # (AUTO) 4.6 X10'3 (1.1-4.8); MEAN CORPUSCULAR HEMOGLOBIN 30.9 PG (27.0-31.0); MEAN CORPUSCULAR HGB CONC 33.9 g/dL (33.0-36.5); MEAN CORPUSCULAR VOLUME 91.2 FL (78-98); MEAN PLATELET VOLUME 8.3 FL (7.4-10.4); MONOCYTES # (AUTO) 0.9 X10'3 (0-0.9); MONOCYTES % (AUTO) 10.2 % (2-12); NEUTROPHILS # (AUTO) 3.1 X10'3 (1.8-7.7); NEUTROPHILS % (AUTO) 35.1 % (42-75); PLATELET COUNT 373 X10'3 (140-440); RED BLOOD COUNT 4.42 X10'6 (4.20-5.60); WHITE BLOOD COUNT 8.8 X10'3 (4.5-11.0)
[2019-10-17 16:21] LABS: ALANINE AMINOTRANSFERASE 10 U/L (12-78); ALBUMIN 3.6 G/DL (3.4-5.0); ALBUMIN/GLOBULIN RATIO 0.9 (1.1-1.5); ALKALINE PHOSPHATASE 76 IU/L (46-116); ANION GAP 12 (8-16); ASPARTATE AMINO TRANSFERASE 16 U/L (10-37); BILIRUBIN,TOTAL 0.5 MG/DL (0.1-1.0); BLOOD UREA NITROGEN 10 MG/DL (7-18); BUN/CREATININE RATIO 10.9 (6.6-38.0); CALCIUM 9.4 MG/DL (8.5-10.1); CHLORIDE 103 MMOL/L (99-107); CREATININE 0.92 MG/DL (0.40-0.90); GLUCOSE 81 MG/DL (70-104); POTASSIUM 3.9 MMOL/L (3.5-5.1); SODIUM 139 MMOL/L (135-145); TOTAL CARBON DIOXIDE 23.7 MMOL/L (24-32); TOTAL PROTEIN 7.8 G/DL (6.4-8.2); eGFR 60 ML/MIN
[2019-10-17 17:16] LABS: TOTAL CELLS COUNTED 100
--- NOTE | 2019-10-17 17:16 | NUR ---
Loreta from [employer] called, pt.'s pacemaker functioning well, last episode was on 09/30/19 showing and episode of 1:1 SVT
[2019-10-17 17:19] LABS: PLATELET ESTIMATE NORMAL; ROULEAUX 1+
[2019-10-17 18:11] VITALS: BP 146/74
[2019-10-17] MEDS ORDERED: HYDROcodone/acetaminophen 5mg/325mg tablet PO ONE (18:15)
[2019-10-17] MEDS ORDERED: ondansetron 4mg rapidly disintigrating tab PO ONE (18:20)
== END 2019-10-17 18:38 | disposition home or self-care (01) ==
LOC: ER 15:23
DX: R07.89 Other chest pain (principal); G43.909 Migraine, unspecified, not intractable, without status migrainosus; M19.90 Unspecified osteoarthritis, unspecified site; Z86.73 Personal history of transient ischemic attack (TIA), and cerebral infarction without residual deficits; Z95.0 Presence of cardiac pacemaker; Z98.890 Other specified postprocedural states; Z88.0 Allergy status to penicillin; Z88.5 Allergy status to narcotic agent; Z88.2 Allergy status to sulfonamides; Z79.82 Long term (current) use of aspirin; Z79.2 Long term (current) use of antibiotics; Z79.899 Other long term (current) drug therapy
CPT/HCPCS: 36415; 70450; 71045; 80053; 83880; 84484; 85007; 85025; 93005; 99285

== ENCOUNTER 2019-10-19 15:14 | Emergency (ER) | payer MEDICARE ==
[~2019-10-19] VITALS: Ht 165.1 cm; Wt 75.0 kg
[2019-10-19 16:03] LABS: BASOPHILS # (AUTO) 0.1 X10'3 (0-0.2); EOSINOPHILS # (AUTO) 0.1 X10'3 (0-0.9); EOSINOPHILS % (AUTO) 0.9 % (0-6); HEMATOCRIT 41.3 % (35.0-45.0); HEMOGLOBIN 13.9 g/dl (12.0-16.0); LYMPHOCYTES # (AUTO) 4.1 X10'3 (1.1-4.8); LYMPHOCYTES % (AUTO) 47.4 % (21-51); MEAN CORPUSCULAR HEMOGLOBIN 31.1 PG (27.0-31.0); MEAN CORPUSCULAR HGB CONC 33.7 g/dL (33.0-36.5); MEAN CORPUSCULAR VOLUME 92.2 FL (78-98); MEAN PLATELET VOLUME 8.8 FL (7.4-10.4); MONOCYTES # (AUTO) 1.1 X10'3 (0-0.9); MONOCYTES % (AUTO) 12.5 % (2-12); NEUTROPHILS # (AUTO) 3.3 X10'3 (1.8-7.7); NEUTROPHILS % (AUTO) 38.2 % (42-75); PLATELET COUNT 330 X10'3 (140-440); RED BLOOD COUNT 4.48 X10'6 (4.20-5.60); RED CELL DISTRIBUTION WIDTH 13.1 % (11.5-14.5); WHITE BLOOD COUNT 8.6 X10'3 (4.5-11.0)
[2019-10-19 16:16] LABS: ALANINE AMINOTRANSFERASE 11 U/L (12-78); ALBUMIN 3.6 G/DL (3.4-5.0); ALBUMIN/GLOBULIN RATIO 0.9 (1.1-1.5); ALKALINE PHOSPHATASE 76 IU/L (46-116); ANION GAP 9 (8-16); ASPARTATE AMINO TRANSFERASE 13 U/L (10-37); BILIRUBIN,TOTAL 0.3 MG/DL (0.1-1.0); BLOOD UREA NITROGEN 9 MG/DL (7-18); BUN/CREATININE RATIO 9.8 (6.6-38.0); CALCIUM 9.4 MG/DL (8.5-10.1); CHLORIDE 103 MMOL/L (99-107); CREATININE 0.92 MG/DL (0.40-0.90); GLUCOSE 91 MG/DL (70-104); POTASSIUM 4.1 MMOL/L (3.5-5.1); SODIUM 138 MMOL/L (135-145); TOTAL CARBON DIOXIDE 25.6 MMOL/L (24-32); TOTAL PROTEIN 7.7 G/DL (6.4-8.2); eGFR 60 ML/MIN
[2019-10-19] MEDS ORDERED: normal saline 1000ml 1,000 ML IV ONE (16:45)
[2019-10-19] MEDS ORDERED: diphenhydrAMINE 50 mg/ml inj IV ONE (16:45)
[2019-10-19] MEDS ORDERED: proCHLORperazine 10 MG/2 ml inj IV ONE (16:45)
[2019-10-19 18:06] VITALS: BP 160/75
== END 2019-10-19 18:03 | disposition home or self-care (01) ==
LOC: ER 15:15
DX: R51 Headache (principal); R55 Syncope and collapse; M19.90 Unspecified osteoarthritis, unspecified site; Z86.73 Personal history of transient ischemic attack (TIA), and cerebral infarction without residual deficits; Z95.0 Presence of cardiac pacemaker; Z98.890 Other specified postprocedural states; Z88.0 Allergy status to penicillin; Z88.2 Allergy status to sulfonamides; Z88.5 Allergy status to narcotic agent; Z79.82 Long term (current) use of aspirin; Z79.899 Other long term (current) drug therapy
CPT/HCPCS: 36415; 71045; 80053; 83880; 84484; 85025; 93005; 96361; 96374; 96375; 99285; J0780; J1200; J7030

== ENCOUNTER 2019-11-19 16:10 | Emergency (ER) | payer MEDICARE ==
[~2019-11-19] VITALS: Ht 165.1 cm; Wt 76.9 kg
[~2019-11-19 16:10] MED LIST changes: -DOXY100C76 PO; -PANT40TA4 PO; +PANT40TA54 PO
[2019-11-19] MEDS ORDERED: ketorolac trometh. 30mg/ml inj. IV ONE (16:25)
[2019-11-19] MEDS ORDERED: normal saline 1000ml 1,000 ML IV ONE (16:25)
[2019-11-19] MEDS ORDERED: SUMAtriptan succ. 6 MG/0.5ml vial SQ ONE (16:25)
[2019-11-19] MEDS ORDERED: proCHLORperazine 10 MG/2 ml inj IV ONE (16:25)
[2019-11-19 17:10] LABS: BASOPHILS # (AUTO) 0.1 X10'3 (0-0.2); EOSINOPHILS # (AUTO) 0.1 X10'3 (0-0.9); EOSINOPHILS % (AUTO) 0.9 % (0-6); HEMATOCRIT 38.7 % (35.0-45.0); HEMOGLOBIN 13.1 g/dl (12.0-16.0); LYMPHOCYTES # (AUTO) 2.5 X10'3 (1.1-4.8); LYMPHOCYTES % (AUTO) 33.4 % (21-51); MEAN CORPUSCULAR HEMOGLOBIN 30.8 PG (27.0-31.0); MEAN CORPUSCULAR HGB CONC 33.9 g/dL (33.0-36.5); MEAN CORPUSCULAR VOLUME 90.7 FL (78-98); MEAN PLATELET VOLUME 8.7 FL (7.4-10.4); MONOCYTES # (AUTO) 0.7 X10'3 (0-0.9); MONOCYTES % (AUTO) 9.3 % (2-12); NEUTROPHILS # (AUTO) 4.2 X10'3 (1.8-7.7); NEUTROPHILS % (AUTO) 55.4 % (42-75); PLATELET COUNT 285 X10'3 (140-440); RED BLOOD COUNT 4.26 X10'6 (4.20-5.60); RED CELL DISTRIBUTION WIDTH 13.3 % (11.5-14.5); WHITE BLOOD COUNT 7.5 X10'3 (4.5-11.0)
[2019-11-19 17:24] LABS: ALANINE AMINOTRANSFERASE 14 U/L (12-78); ALBUMIN 3.6 G/DL (3.4-5.0); ALKALINE PHOSPHATASE 65 IU/L (46-116); ANION GAP 8 (8-16); ASPARTATE AMINO TRANSFERASE 14 U/L (10-37); BILIRUBIN,TOTAL 0.4 MG/DL (0.1-1.0); BLOOD UREA NITROGEN 6 MG/DL (7-18); BUN/CREATININE RATIO 6.4 (6.6-38.0); CALCIUM 9.2 MG/DL (8.5-10.1); CHLORIDE 105 MMOL/L (99-107); CREATININE 0.94 MG/DL (0.40-0.90); GLUCOSE 128 MG/DL (70-104); POTASSIUM 3.3 MMOL/L (3.5-5.1); SODIUM 140 MMOL/L (135-145); TOTAL CARBON DIOXIDE 26.7 MMOL/L (24-32); TOTAL PROTEIN 7.1 G/DL (6.4-8.2); eGFR 59 ML/MIN
[2019-11-19 17:57] VITALS: BP 145/66
== END 2019-11-19 17:59 | disposition home or self-care (01) ==
LOC: ER 16:11
DX: G43.909 Migraine, unspecified, not intractable, without status migrainosus (principal); M19.90 Unspecified osteoarthritis, unspecified site; R11.2 Nausea with vomiting, unspecified; Z95.0 Presence of cardiac pacemaker; Z98.890 Other specified postprocedural states; Z86.73 Personal history of transient ischemic attack (TIA), and cerebral infarction without residual deficits; Z88.0 Allergy status to penicillin; Z88.2 Allergy status to sulfonamides; Z88.5 Allergy status to narcotic agent; Z79.82 Long term (current) use of aspirin; Z79.899 Other long term (current) drug therapy
CPT/HCPCS: 36415; 71045; 80053; 83880; 84484; 85025; 93005; 96361; 96372; 96374; 96375; 99285; J0780; J1885; J7030; J3030

== ENCOUNTER 2020-02-18 16:33 | Emergency (ER) | payer MEDICARE ==
[~2020-02-18] VITALS: Ht 165.1 cm; Wt 73.6 kg
[2020-02-18 17:03] VITALS: BP 158/93
[2020-02-18] MEDS ORDERED: dexamethasone sod phosphate 10mg/ml inj IV STA (19:04)
[2020-02-18] MEDS ORDERED: normal saline 1000ML IV soln IVB ONE (19:05)
[2020-02-18] MEDS ORDERED: ketorolac trometh. 30mg/ml inj. IV ONE (19:05)
[2020-02-18] MEDS ORDERED: LORazepam 2 mg/ml vial IV ONE (19:05)
[2020-02-18] MEDS ORDERED: metoclopramide 5 mg/ml inj IV ONE (19:05)
[2020-02-18] MEDS ORDERED: ketorolac tromethamine 15mg/ml inj. IV ONE (19:15)
== END 2020-02-18 20:45 | disposition home or self-care (01) ==
LOC: ER 16:33
DX: G43.919 Migraine, unspecified, intractable, without status migrainosus (principal); M19.90 Unspecified osteoarthritis, unspecified site; Z86.73 Personal history of transient ischemic attack (TIA), and cerebral infarction without residual deficits; Z95.0 Presence of cardiac pacemaker; Z88.0 Allergy status to penicillin; Z88.2 Allergy status to sulfonamides; Z88.5 Allergy status to narcotic agent; Z79.899 Other long term (current) drug therapy
CPT/HCPCS: 96374; 96375; 99284; J1100; J1885; J2060; J2765; J7030; 96361

== ENCOUNTER 2020-02-24 13:16 | Emergency (ER) | payer BC, MEDICARE ==
[~2020-02-24] VITALS: Ht 165.1 cm; Wt 67.3 kg
[2020-02-24] MEDS ORDERED: ketorolac tromethamine 15mg/ml inj. IV ONE (14:00)
[2020-02-24] MEDS ORDERED: diphenhydrAMINE 50 mg/ml inj IV ONE (14:00)
[2020-02-24] MEDS ORDERED: normal saline 1000ML IV soln IVB ONE ×2 (14:00→16:05)
[2020-02-24] MEDS ORDERED: proCHLORperazine 10 MG/2 ml inj IV ONE (14:00)
[2020-02-24 14:41] LABS: ALANINE AMINOTRANSFERASE 16 U/L (12-78); ALBUMIN 3.9 G/DL (3.4-5.0); ALKALINE PHOSPHATASE 84 IU/L (46-116); ANION GAP 11 (8-16); ASPARTATE AMINO TRANSFERASE 13 U/L (10-37); BILIRUBIN,TOTAL 0.3 MG/DL (0.1-1.0); BLOOD UREA NITROGEN 8 MG/DL (7-18); BUN/CREATININE RATIO 8.5 (6.6-38.0); CALCIUM 9.4 MG/DL (8.5-10.1); CHLORIDE 107 MMOL/L (99-107); CREATININE 0.94 MG/DL (0.40-0.90); GLUCOSE 92 MG/DL (70-104); SODIUM 141 MMOL/L (135-145); TOTAL PROTEIN 7.7 G/DL (6.4-8.2); eGFR 59 ML/MIN
[2020-02-24 14:42] LABS: POTASSIUM 3.8 MMOL/L (3.5-5.1)
[2020-02-24 14:43] LABS: BASOPHILS # (AUTO) 0.1 X10'3 (0-0.2); BASOPHILS % (AUTO) 0.6 % (0-1); EOSINOPHILS # (AUTO) 0.1 X10'3 (0-0.9); HEMOGLOBIN 14.5 g/dl (12.0-16.0); LYMPHOCYTES # (AUTO) 3.9 X10'3 (1.1-4.8); LYMPHOCYTES % (AUTO) 41.8 % (21-51); MEAN CORPUSCULAR HEMOGLOBIN 31.2 PG (27.0-31.0); MEAN CORPUSCULAR HGB CONC 34.6 g/dL (33.0-36.5); MEAN CORPUSCULAR VOLUME 90.2 FL (78-98); MEAN PLATELET VOLUME 9.6 FL (7.4-10.4); MONOCYTES # (AUTO) 0.7 X10'3 (0-0.9); MONOCYTES % (AUTO) 7.6 % (2-12); NEUTROPHILS # (AUTO) 4.6 X10'3 (1.8-7.7); PLATELET COUNT 254 X10'3 (140-440); RED BLOOD COUNT 4.65 X10'6 (4.20-5.60); WHITE BLOOD COUNT 9.3 X10'3 (4.5-11.0)
[2020-02-24] MEDS ORDERED: dexamethasone sod phosphate 10mg/ml inj IV STA (15:10)
[2020-02-24] MEDS ORDERED: LORazepam 2 mg/ml vial IV ONE (15:10)
[2020-02-24 15:30] LABS: CLARITY,URINE CLOUDY (Clear); COLOR,URINE YELLOW (Yellow); GLUCOSE, URINE NEGATIVE (Neg); KETONES,URINE NEGATIVE (Neg); LEUKOCYTE ESTERASE ,URINE TRACE (Neg); NITRITES, URINE POSITIVE (Neg); OCCULT BLOOD,URINE NEGATIVE (Neg); PROTEIN,URINE NEGATIVE (Neg); UROBILINOGEN,URINE 0.2 E.U/dL (0.2-1.0)
[2020-02-24 15:31] LABS: UA COLLECTION TYPE CLN CATCH MIDSTREAM
[2020-02-24 15:36] LABS: BACTERIA,URINE 4+ /HPF (Neg); MUCUS STRANDS NONE SEEN /LPF (Neg); RBC,URINE NONE SEEN /HPF (0-2); SQUAMOUS EPITHELIAL CELL,UR MODERATE /LPF (FEW); WBC CLUMPS,URINE FEW /HPF (NEGATIVE)
[2020-02-24] MEDS ORDERED: levoFLOXACIN-Levaquin 750MG/D5 150 ML IV STA (15:55)
[2020-02-24] MEDS ORDERED: morphine 4 MG/ML inj SYRINge IV ONE (15:55)
[2020-02-24] MEDS ORDERED: CIPR-230 PO (16:07)
[2020-02-24 16:37] VITALS: BP 149/64
== END 2020-02-24 18:20 | disposition home or self-care (01) ==
LOC: ER 13:17
DX: G43.909 Migraine, unspecified, not intractable, without status migrainosus (principal); N39.0 Urinary tract infection, site not specified; R07.89 Other chest pain; M19.90 Unspecified osteoarthritis, unspecified site; Z86.73 Personal history of transient ischemic attack (TIA), and cerebral infarction without residual deficits; Z95.0 Presence of cardiac pacemaker; Z88.0 Allergy status to penicillin; Z88.2 Allergy status to sulfonamides; Z88.8 Allergy status to other drugs, medicaments and biological substances; Z79.82 Long term (current) use of aspirin; Z79.2 Long term (current) use of antibiotics; Z79.899 Other long term (current) drug therapy
CPT/HCPCS: 36415; 80053; 81001; 85025; 93005; 96361; 96365; 96366; 96375; 99284; J0780; J1100; J1200; J1885; J1956; J2060; J2270; J7030

== ENCOUNTER 2020-08-12 13:56 | Emergency (ER) | payer BC, MEDICARE ==
[~2020-08-12] VITALS: Ht 167.6 cm; Wt 64.0 kg
[~2020-08-12 13:56] MED LIST changes: -CIPR500T5 PO; +CYAN50005 PO; -FOLI0.4T2 PO; +FOLI0.4T6 PO; +HYDR-3972 PO; -HYDR-3973 PO; -HYDR-4383 PO; +LACT1CAP26 PO; -MECL-184 PO; +MECL-231 PO; -METR500T PO; +ONDA-103 PO; -ONDA4TAB6 PO; -ONDA8TAB6 PO; +SUMA50TA17 PO; +TOPI25CA6 PO; +TRAZ-251 PO
[2020-08-12] MEDS ORDERED: diazepam inj 5 MG/ML inj. IV ONE ×2 (14:35→19:15)
[2020-08-12] MEDS ORDERED: diphenhydrAMINE 50 mg/ml inj IV ONE (14:35)
[2020-08-12] MEDS ORDERED: proCHLORperazine 10 MG/2 ml inj IV ONE (14:35)
[2020-08-12] MEDS ORDERED: ketorolac tromethamine 15mg/ml inj. IV ONE (19:15)
[2020-08-12] MEDS ORDERED: ketorolac trometh. 30mg/ml inj. IV ONE (19:15)
[2020-08-12 19:34] VITALS: BP 122/81
== END 2020-08-12 19:38 | disposition home or self-care (01) ==
LOC: ER 13:56
DX: G43.909 Migraine, unspecified, not intractable, without status migrainosus (principal); R11.2 Nausea with vomiting, unspecified; M54.2 Cervicalgia; I10 Essential (primary) hypertension; M19.90 Unspecified osteoarthritis, unspecified site; F03.90 Unspecified dementia, unspecified severity, without behavioral disturbance, psychotic disturbance, mood disturbance, and anxiety; G89.29 Other chronic pain; Z86.73 Personal history of transient ischemic attack (TIA), and cerebral infarction without residual deficits; Z87.440 Personal history of urinary (tract) infections; Z95.0 Presence of cardiac pacemaker
CPT/HCPCS: 96374; 96375; 96376; 99284; J0780; J1200; J1885; J3360

== ENCOUNTER 2022-05-27 11:42 | Emergency (ER) | payer MEDICARE ==
[~2022-05-27] VITALS: Ht 165.1 cm; Wt 67.3 kg
[~2022-05-27 11:42] MED LIST changes: -ASPI-611 PO; +CLOP75TA15 PO; +GABA-530 PO; -HYDR-3972 PO; -LACT1CAP26 PO; +MELA10TA2 PO; -MELA3TAB39 PO; -MSC30T PO; +TOPI-253 PO; -TOPI25CA6 PO; -TRAZ-251 PO
[2022-05-27 12:58] VITALS: BP 146/69
[2022-05-27] MEDS ORDERED: predniSONE 20 mg tablet PO ONE (13:50)
[2022-05-27] MEDS ORDERED: ipratropium/albuterol 3ml nebule NEB ONE (13:50)
--- NOTE | 2022-05-27 14:13 | NUR ---
RT AT BEDSIDE.
[2022-05-27] MEDS ORDERED: ALBU6.7H14 INH (14:15)
[2022-05-27] MEDS ORDERED: PRED20TA PO (14:15)
[2022-05-27] MEDS ORDERED: CEPH250T PO (14:15)
[2022-05-27] MEDS ORDERED: GUAI1TBM19 PO (14:15)
== END 2022-05-27 14:33 | disposition home or self-care (01) ==
LOC: ER 11:42
DX: J20.9 Acute bronchitis, unspecified (principal); G43.909 Migraine, unspecified, not intractable, without status migrainosus; I10 Essential (primary) hypertension; G89.29 Other chronic pain; M54.9 Dorsalgia, unspecified; Z88.0 Allergy status to penicillin; Z88.2 Allergy status to sulfonamides; Z88.5 Allergy status to narcotic agent; Z79.899 Other long term (current) drug therapy; Z79.1 Long term (current) use of non-steroidal anti-inflammatories (NSAID); Z79.2 Long term (current) use of antibiotics
CPT/HCPCS: 71046; 94640; 99284; J7512

== ENCOUNTER 2022-08-28 15:47 | Emergency (ER) | payer MEDICARE ==
[~2022-08-28] VITALS: Ht 165.1 cm; Wt 69.5 kg
[~2022-08-28 15:47] MED LIST changes: +ALBU6.7H14 INH; +GUAI1TBM19 PO
[2022-08-28] MEDS ORDERED: normal saline 1000ml 1,000 ML IV ONE (17:10)
[2022-08-28] MEDS ORDERED: LORazepam 2 mg/ml vial IV ONE (17:10)
[2022-08-28] MEDS ORDERED: meclizine 12.5mg tablet PO ONE (17:10)
[2022-08-28] MEDS ORDERED: ondansetron/PF 4mg/2ml inj IV ONE (17:16)
[2022-08-28 17:42] LABS: BASOPHILS # (AUTO) 0.1 X10'3 (0-0.2); BASOPHILS % (AUTO) 0.6 % (0-1); EOSINOPHILS # (AUTO) 0.1 X10'3 (0-0.9); EOSINOPHILS % (AUTO) 1.4 % (0-6); HEMATOCRIT 40.8 % (35.0-45.0); HEMOGLOBIN 13.9 g/dl (12.0-16.0); LYMPHOCYTES # (AUTO) 4.3 X10'3 (1.1-4.8); LYMPHOCYTES % (AUTO) 42.5 % (21-51); MEAN CORPUSCULAR VOLUME 88.2 FL (78-98); MEAN PLATELET VOLUME 8.2 FL (7.4-10.4); MONOCYTES # (AUTO) 0.6 X10'3 (0-0.9); MONOCYTES % (AUTO) 5.7 % (2-12); NEUTROPHILS % (AUTO) 49.8 % (42-75); PLATELET COUNT 263 X10'3 (140-440); RED BLOOD COUNT 4.62 X10'6 (4.20-5.60); RED CELL DISTRIBUTION WIDTH 13.8 % (11.5-14.5)
[2022-08-28 17:50] LABS: ALANINE AMINOTRANSFERASE 13 U/L (12-78); ALBUMIN 3.5 G/DL (3.4-5.0); ALBUMIN/GLOBULIN RATIO 1.1 (1.1-1.5); ALKALINE PHOSPHATASE 85 IU/L (46-116); ANION GAP 10 (8-16); ASPARTATE AMINO TRANSFERASE 12 U/L (10-37); BILIRUBIN,TOTAL 0.5 MG/DL (0.1-1.0); BLOOD UREA NITROGEN 6 MG/DL (7-18); CALCIUM 8.9 MG/DL (8.5-10.1); CHLORIDE 103 MMOL/L (99-107); CREATININE 0.86 MG/DL (0.40-0.90); GLUCOSE 93 MG/DL (70-104); POTASSIUM 3.5 MMOL/L (3.5-5.1); SODIUM 139 MMOL/L (135-145); TOTAL CARBON DIOXIDE 25.8 MMOL/L (24-32); TOTAL PROTEIN 6.6 G/DL (6.4-8.2); eGFR 65 ML/MIN
[2022-08-28] MEDS ORDERED: morphine 4 MG/ML inj SYRINge IV ONE (19:05)
[2022-08-28] MEDS ORDERED: MECL-159 PO (19:25)
[2022-08-28 19:58] VITALS: BP 136/66
== END 2022-08-28 20:00 | disposition home or self-care (01) ==
LOC: ER 15:47
DX: S09.8XXA Other specified injuries of head, initial encounter (principal); R42 Dizziness and giddiness; X58.XXXA Exposure to other specified factors, initial encounter; Y93.89 Activity, other specified; Y92.89 Other specified places as the place of occurrence of the external cause; Y99.8 Other external cause status
CPT/HCPCS: 36415; 70450; 71045; 80053; 82140; 84484; 85025; 93005; 96361; 96374; 96375; 99285; J2060; J2270; J2405; J7030; J8597

== ENCOUNTER 2023-08-17 12:16 | Emergency (ER) | payer MEDICARE ==
[~2023-08-17] VITALS: Ht 165.1 cm; Wt 66.5 kg
[~2023-08-17 12:16] MED LIST changes: +MECL-302 PO; -TOPI-253 PO; +TOPI-95 PO
[2023-08-17 12:19] VITALS: TEMP 98.8
[2023-08-17 12:59] LABS: BASOPHILS # (AUTO) 0.1 X10'3 (0-0.2); BASOPHILS % (AUTO) 1.2 % (0-1); EOSINOPHILS # (AUTO) 0.3 X10'3 (0-0.9); EOSINOPHILS % (AUTO) 3.4 % (0-6); HEMATOCRIT 40.2 % (35.0-45.0); HEMOGLOBIN 13.7 g/dl (12.0-16.0); LYMPHOCYTES # (AUTO) 3.9 X10'3 (1.1-4.8); LYMPHOCYTES % (AUTO) 47.5 % (21-51); MEAN CORPUSCULAR HEMOGLOBIN 30.7 PG (27.0-31.0); MEAN CORPUSCULAR HGB CONC 34.1 g/dL (33.0-36.5); MEAN CORPUSCULAR VOLUME 90.1 FL (78-98); MEAN PLATELET VOLUME 9.8 FL (7.4-10.4); MONOCYTES # (AUTO) 0.7 X10'3 (0-0.9); NEUTROPHILS # (AUTO) 3.3 X10'3 (1.8-7.7); NEUTROPHILS % (AUTO) 39.9 % (42-75); PLATELET COUNT 266 X10'3 (140-440); RED BLOOD COUNT 4.46 X10'6 (4.20-5.60); RED CELL DISTRIBUTION WIDTH 13.9 % (11.5-14.5); WHITE BLOOD COUNT 8.2 X10'3 (4.5-11.0)
[2023-08-17] MEDS: nitroGLYCERIN 1gm ointment UD TP ONE (13:09)
[2023-08-17 13:20] LABS: ALANINE AMINOTRANSFERASE 22 U/L (12-78); ALBUMIN 3.3 G/DL (3.4-5.0); ALKALINE PHOSPHATASE 86 IU/L (46-116); ANION GAP 11 (8-16); ASPARTATE AMINO TRANSFERASE 8 U/L (10-37); BILIRUBIN,TOTAL 0.4 MG/DL (0.1-1.0); BLOOD UREA NITROGEN 14 MG/DL (7-18); BUN/CREATININE RATIO 16.3 (10.0-20.0); CALCIUM 8.8 MG/DL (8.5-10.1); CHLORIDE 107 MMOL/L (99-107); CREATININE 0.86 MG/DL (0.40-0.90); GLUCOSE 110 MG/DL (70-104); POTASSIUM 3.5 MMOL/L (3.5-5.1); SODIUM 139 MMOL/L (135-145); TOTAL CARBON DIOXIDE 21.2 MMOL/L (24-32); TOTAL PROTEIN 6.7 G/DL (6.4-8.2); eCRCL 51 ML/MIN; eGFR 64 ML/MIN
[2023-08-17 13:31] LABS: BILIRUBIN,DIRECT 0.1 MG/DL (0-0.3); MAGNESIUM 1.9 MG/DL (1.5-2.4); PRO BRAIN NATRIURETIC PEPTIDE 340 PG/ML (0-450); THYROID STIMULATING HORMONE 2.52 ulU/ml (0.34-4.50)
[2023-08-17 13:50] LABS: LIPASE 72 U/L (16-77)
[2023-08-17] MEDS: LIDOcaine 2% Viscous 15ml cup MM ONE (13:55)
[2023-08-17] MEDS: mag hydrox/Alum hydrox/simeth 30ml oral suspension PO ONE (13:55)
[2023-08-17] MEDS ORDERED: iohexol 350MG/ML 100ml bottle IV ONE (14:27)
[2023-08-17] MEDS: HYDROmorphone inj. 0.5 MG/0.5 ML DISP.SYRIN IV ONE (15:42)
[2023-08-17] MEDS ORDERED: LISI20TA28 PO (17:41)
[2023-08-17] MEDS: HYDROmorphone 1 mg/ml syringe IV ONE (17:54)
[2023-08-17 18:01] VITALS: BP 136/88; PULSE 76; RESP 18; O2SAT 98
== END 2023-08-18 06:40 | disposition home or self-care (01) ==
LOC: ER 12:17
DX: R07.9 Chest pain, unspecified (principal); R06.02 Shortness of breath; F03.90 Unspecified dementia, unspecified severity, without behavioral disturbance, psychotic disturbance, mood disturbance, and anxiety; G43.909 Migraine, unspecified, not intractable, without status migrainosus; I10 Essential (primary) hypertension; M19.90 Unspecified osteoarthritis, unspecified site; G89.29 Other chronic pain; M54.9 Dorsalgia, unspecified; F17.200 Nicotine dependence, unspecified, uncomplicated; Z95.0 Presence of cardiac pacemaker; Z98.890 Other specified postprocedural states; Z88.0 Allergy status to penicillin; Z88.2 Allergy status to sulfonamides; Z88.8 Allergy status to other drugs, medicaments and biological substances; Z79.899 Other long term (current) drug therapy; Z86.73 Personal history of transient ischemic attack (TIA), and cerebral infarction without residual deficits
CPT/HCPCS: 36415; 71045; 71275; 76700; 80048; 80076; 83690; 83735; 83880; 84443; 84484; 85025; 93005; 96374; 96376; 99285; J1170; Q9967; 96375

== ENCOUNTER 2023-12-05 23:32 | Inpatient (IN) | payer MEDICARE ==
[~2023-12-05] VITALS: Ht 165.1 cm; Wt 66.1 kg
[~2023-12-05 23:32] MED LIST changes: -ACET-343 PO; -ALBU6.7H14 INH; -ATOR20TA66 PO; -CHOL100046 PO; -CLOP75TA15 PO; -CYAN50005 PO; -DICY20TA17 PO; -DILT120C51 PO; -FOLI0.4T6 PO; -GABA-530 PO; -GUAI1TBM19 PO; +LISI20TA28 PO; -MECL-231 PO; -MECL-302 PO; -MELA10TA2 PO; -ONDA-103 PO; -PANT40TA54 PO; -SUMA50TA17 PO; -TOPI-95 PO
[2023-12-06 00:06] LABS: BASOPHILS # (AUTO) 0.1 X10'3 (0-0.2); BASOPHILS % (AUTO) 1.1 % (0-1); EOSINOPHILS # (AUTO) 0.2 X10'3 (0-0.9); EOSINOPHILS % (AUTO) 2.2 % (0-6); HEMATOCRIT 41.7 % (35.0-45.0); HEMOGLOBIN 14.2 g/dl (12.0-16.0); LYMPHOCYTES # (AUTO) 5.1 X10'3 (1.1-4.8); LYMPHOCYTES % (AUTO) 53.3 % (21-51); MEAN CORPUSCULAR HEMOGLOBIN 30.1 PG (27.0-31.0); MEAN CORPUSCULAR HGB CONC 34.1 g/dL (33.0-36.5); MEAN CORPUSCULAR VOLUME 88.4 FL (78-98); MEAN PLATELET VOLUME 9.1 FL (7.4-10.4); NEUTROPHILS # (AUTO) 3.2 X10'3 (1.8-7.7); NEUTROPHILS % (AUTO) 33.4 % (42-75); PLATELET COUNT 261 X10'3 (140-440); RED BLOOD COUNT 4.72 X10'6 (4.20-5.60); RED CELL DISTRIBUTION WIDTH 12.9 % (11.5-14.5); WHITE BLOOD COUNT 9.6 X10'3 (4.5-11.0)
[2023-12-06 00:11] LABS: ALBUMIN 3.4 G/DL (3.4-5.0); ANION GAP 5 (8-16); BLOOD UREA NITROGEN 14 MG/DL (7-18); BUN/CREATININE RATIO 8.7 (10.0-20.0); CALCIUM 8.8 MG/DL (8.5-10.1); CHLORIDE 105 MMOL/L (99-107); CREATININE 1.61 MG/DL (0.40-0.90); GLUCOSE 98 MG/DL (70-104); POTASSIUM 3.5 MMOL/L (3.5-5.1); SODIUM 140 MMOL/L (135-145); TOTAL CARBON DIOXIDE 29.7 MMOL/L (24-32); eCRCL 27 ML/MIN; eGFR 31 ML/MIN
[2023-12-06 01:01] LABS: APTT 24 SECONDS (22-32); PROTHROMBIN TIME 10.2 SECONDS (9.0-12.0)
[2023-12-06 01:07] LABS: ETHANOL < 10 MG/DL (<10)
[2023-12-06] MEDS: aspirin 325mg tablet PO ONE (02:10)
[2023-12-06 03:38] LABS: BILIRUBIN,URINE NEGATIVE (Neg); CLARITY,URINE CLEAR (Clear); COLOR,URINE YELLOW (Yellow); GLUCOSE, URINE NEGATIVE (Neg); KETONES,URINE NEGATIVE (Neg); LEUKOCYTE ESTERASE ,URINE TRACE (Neg); NITRITES, URINE NEGATIVE (Neg); OCCULT BLOOD,URINE NEGATIVE (Neg); PROTEIN,URINE NEGATIVE (Neg); UA COLLECTION TYPE CLN CATCH MIDSTREAM; UROBILINOGEN,URINE 0.2 E.U/dL (0.2-1.0)
[2023-12-06 03:44] LABS: BACTERIA,URINE 1+ /HPF (Neg); RBC,URINE NONE SEEN /HPF (0-2); WBC,URINE 0-4 /HPF (0-4)
[2023-12-06 03:45] LABS: MUCUS STRANDS NONE SEEN /LPF (Neg); SQUAMOUS EPITHELIAL CELL,UR FEW /LPF (FEW)
[2023-12-06] MEDS: acetaminophen 325mg tablet PO ONE (03:48)
[2023-12-06] MEDS ORDERED: potassium Cl 20 mEq SR tablet PO PRN ×2 (07:20)
[2023-12-06] MEDS ORDERED: magnesium Cl slow-release 64mg tablet PO PRN (07:20)
[2023-12-06] MEDS ORDERED: mag hydrox/Alum hydrox/simeth 30ml oral suspension PO PRN (07:20)
[2023-12-06] MEDS ORDERED: magnesium sulf-water 2g/50mL 50 ML IV PRN (07:20)
[2023-12-06] MEDS ORDERED: magnesium sulf-water 4G/100mL 100 ML IV PRN (07:20)
[2023-12-06] MEDS ORDERED: potassium Cl 40MEQ/1/2NS 520ml 520 ML IV PRN (07:20)
[2023-12-06] MEDS ORDERED: ondansetron/PF 4mg/2ml inj IV PRN (07:20)
[2023-12-06] MEDS ORDERED: acetaminophen 325mg tablet PO PRN (07:20)
[2023-12-06] MEDS ORDERED: morphine 2 MG/ML inj. syringe IV PRN (07:20)
[2023-12-06] MEDS ORDERED: magnesium hydroxide 30ml (MOM) UD suspension PO PRN (07:20)
[2023-12-06] MEDS: normal saline 1000ml 1,000 ML IV SCH (07:57)
[2023-12-06] MEDS: docusate sod 100mg capsule PO SCH (08:00)
[2023-12-06] MEDS: K and/or MAG REPLACEMENT MC SCH (08:00)
[2023-12-06 08:37] LABS: MAGNESIUM 2.2 MG/DL (1.5-2.4); POTASSIUM 3.7 MMOL/L (3.5-5.1)
[2023-12-06] MEDS ORDERED: iohexol 350MG/ML 100ml bottle IV ONE (09:42)
[2023-12-06] MEDS ORDERED: NO HOME MEDS (09:56)
[2023-12-06] MEDS: morphine 2 MG/ML inj. syringe IV PRN (10:54)
[2023-12-06] MEDS ORDERED: hydrALAZINE 20mg/ml inj. IV PRN (11:05)
[2023-12-06 11:14] LABS: CHOL/HDL RATIO 4.7 (0.00-4.99); CHOLESTEROL 180 MG/DL (0-200); HDL CHOLESTEROL 38 MG/DL (35-60); LDL CHOLESTEROL 105 MG/DL (50-100); TRIGLYCERIDES 224 MG/DL (20-135)
[2023-12-06 11:17] LABS: HEMOGLOBIN A1C 5.6 % (4.5-6.2)
[2023-12-06] MEDS: oxyCODONE/APAP 5-325mg tablet PO PRN (14:49)
[2023-12-06] MEDS: atorvastatin 20mg tablet PO SCH (16:36)
[2023-12-06 18:00] VITALS: BP 163/68; PULSE 60; RESP 14; TEMP 97.2; O2SAT 96
[2023-12-06 20:29] VITALS: RESP 16; O2SAT 97
[2023-12-06 22:00] VITALS: BP 169/73; PULSE 62; RESP 13; TEMP 97.3; O2SAT 95
[2023-12-07] VITALS (7 sets, daily range): BP systolic 112–169; BP diastolic 57–70; PULSE 58–70; RESP 14–18; TEMP 97.4–99.1; O2SAT 96–100
[2023-12-07] MEDS: aspirin 81mg tab.chew PO SCH (07:41)
[2023-12-07 09:04] LABS: BASOPHILS # (AUTO) 0.1 X10'3 (0-0.2); EOSINOPHILS # (AUTO) 0.2 X10'3 (0-0.9); EOSINOPHILS % (AUTO) 2.5 % (0-6); MONOCYTES # (AUTO) 0.7 X10'3 (0-0.9)
[2023-12-07 09:05] LABS: BASOPHILS % (AUTO) 0.9 % (0-1); HEMATOCRIT 39.3 % (35.0-45.0); HEMOGLOBIN 13.1 g/dl (12.0-16.0); LYMPHOCYTES # (AUTO) 4.3 X10'3 (1.1-4.8); LYMPHOCYTES % (AUTO) 57.7 % (21-51); MEAN CORPUSCULAR HEMOGLOBIN 29.8 PG (27.0-31.0); MEAN CORPUSCULAR HGB CONC 33.2 g/dL (33.0-36.5); MEAN CORPUSCULAR VOLUME 89.5 FL (78-98); MONOCYTES % (AUTO) 9.4 % (2-12); NEUTROPHILS # (AUTO) 2.2 X10'3 (1.8-7.7); NEUTROPHILS % (AUTO) 29.5 % (42-75); PLATELET COUNT 257 X10'3 (140-440); RED BLOOD COUNT 4.39 X10'6 (4.20-5.60); RED CELL DISTRIBUTION WIDTH 13.2 % (11.5-14.5); WHITE BLOOD COUNT 7.5 X10'3 (4.5-11.0)
[2023-12-07 09:14] LABS: ALANINE AMINOTRANSFERASE 12 U/L (12-78); ALBUMIN 2.9 G/DL (3.4-5.0); ALBUMIN/GLOBULIN RATIO 0.9 (1.1-1.5); ALKALINE PHOSPHATASE 104 IU/L (46-116); ANION GAP 7 (8-16); BILIRUBIN,TOTAL 0.4 MG/DL (0.1-1.0); BLOOD UREA NITROGEN 14 MG/DL (7-18); BUN/CREATININE RATIO 15.7 (10.0-20.0); CALCIUM 8.7 MG/DL (8.5-10.1); CHLORIDE 108 MMOL/L (99-107); CREATININE 0.89 MG/DL (0.40-0.90); GLUCOSE 100 MG/DL (70-104); POTASSIUM 4.2 MMOL/L (3.5-5.1); SODIUM 140 MMOL/L (135-145); TOTAL PROTEIN 6.1 G/DL (6.4-8.2); eCRCL 48 ML/MIN; eGFR 62 ML/MIN
[2023-12-07 09:20] LABS: ASPARTATE AMINO TRANSFERASE 15 U/L (10-37)
[2023-12-07 09:51] LABS: TOTAL CELLS COUNTED 100
[2023-12-07 09:52] LABS: PLATELET ESTIMATE NORMAL
[2023-12-08] VITALS (7 sets, daily range): BP systolic 151–174; BP diastolic 51–78; PULSE 59–66; RESP 14–18; TEMP 97.3–98.2; O2SAT 95–99
[2023-12-08 06:01] LABS: ALANINE AMINOTRANSFERASE 14 U/L (12-78); ALBUMIN/GLOBULIN RATIO 0.8 (1.1-1.5); ALKALINE PHOSPHATASE 100 IU/L (46-116); ANION GAP 5 (8-16); ASPARTATE AMINO TRANSFERASE 16 U/L (10-37); BILIRUBIN,TOTAL 0.4 MG/DL (0.1-1.0); BLOOD UREA NITROGEN 19 MG/DL (7-18); BUN/CREATININE RATIO 20.7 (10.0-20.0); CALCIUM 8.8 MG/DL (8.5-10.1); CHLORIDE 106 MMOL/L (99-107); CREATININE 0.92 MG/DL (0.40-0.90); GLUCOSE 102 MG/DL (70-104); POTASSIUM 4.4 MMOL/L (3.5-5.1); SODIUM 138 MMOL/L (135-145); TOTAL PROTEIN 6.6 G/DL (6.4-8.2); eCRCL 47 ML/MIN; eGFR 59 ML/MIN
[2023-12-08 08:57] LABS: BASOPHILS # (AUTO) 0.1 X10'3 (0-0.2); EOSINOPHILS # (AUTO) 0.2 X10'3 (0-0.9); EOSINOPHILS % (AUTO) 2.3 % (0-6); HEMATOCRIT 40.6 % (35.0-45.0); HEMOGLOBIN 13.4 g/dl (12.0-16.0); LYMPHOCYTES # (AUTO) 3.8 X10'3 (1.1-4.8); LYMPHOCYTES % (AUTO) 49.7 % (21-51); MEAN CORPUSCULAR HEMOGLOBIN 29.4 PG (27.0-31.0); MEAN CORPUSCULAR HGB CONC 32.9 g/dL (33.0-36.5); MEAN CORPUSCULAR VOLUME 89.3 FL (78-98); MEAN PLATELET VOLUME 10.3 FL (7.4-10.4); MONOCYTES # (AUTO) 0.7 X10'3 (0-0.9); MONOCYTES % (AUTO) 8.5 % (2-12); NEUTROPHILS % (AUTO) 38.5 % (42-75); PLATELET COUNT 258 X10'3 (140-440); RED BLOOD COUNT 4.54 X10'6 (4.20-5.60); WHITE BLOOD COUNT 7.7 X10'3 (4.5-11.0)
[2023-12-08] MEDS: amLODIPine 5mg tablet PO SCH (19:41)
[2023-12-09 07:55] LABS: BASOPHILS # (AUTO) 0.1 X10'3 (0-0.2); BASOPHILS % (AUTO) 1.1 % (0-1); EOSINOPHILS # (AUTO) 0.1 X10'3 (0-0.9); EOSINOPHILS % (AUTO) 1.8 % (0-6); HEMATOCRIT 38.5 % (35.0-45.0); HEMOGLOBIN 12.9 g/dl (12.0-16.0); LYMPHOCYTES # (AUTO) 3.5 X10'3 (1.1-4.8); LYMPHOCYTES % (AUTO) 45.6 % (21-51); MEAN CORPUSCULAR HEMOGLOBIN 29.7 PG (27.0-31.0); MEAN CORPUSCULAR HGB CONC 33.4 g/dL (33.0-36.5); MONOCYTES # (AUTO) 0.6 X10'3 (0-0.9); MONOCYTES % (AUTO) 8.3 % (2-12); NEUTROPHILS # (AUTO) 3.3 X10'3 (1.8-7.7); NEUTROPHILS % (AUTO) 43.2 % (42-75); PLATELET COUNT 256 X10'3 (140-440); RED BLOOD COUNT 4.33 X10'6 (4.20-5.60); RED CELL DISTRIBUTION WIDTH 12.6 % (11.5-14.5); WHITE BLOOD COUNT 7.7 X10'3 (4.5-11.0)
[2023-12-09 08:53] LABS: ALANINE AMINOTRANSFERASE 14 U/L (12-78); ALBUMIN 3.1 G/DL (3.4-5.0); ALBUMIN/GLOBULIN RATIO 0.9 (1.1-1.5); ALKALINE PHOSPHATASE 94 IU/L (46-116); ANION GAP 7 (8-16); ASPARTATE AMINO TRANSFERASE 9 U/L (10-37); BILIRUBIN,TOTAL 0.5 MG/DL (0.1-1.0); BLOOD UREA NITROGEN 18 MG/DL (7-18); BUN/CREATININE RATIO 20.9 (10.0-20.0); CALCIUM 8.9 MG/DL (8.5-10.1); CHLORIDE 107 MMOL/L (99-107); CREATININE 0.86 MG/DL (0.40-0.90); GLUCOSE 98 MG/DL (70-104); MAGNESIUM 2.1 MG/DL (1.5-2.4); POTASSIUM 4.1 MMOL/L (3.5-5.1); SODIUM 140 MMOL/L (135-145); TOTAL CARBON DIOXIDE 25.6 MMOL/L (24-32); TOTAL PROTEIN 6.4 G/DL (6.4-8.2); eCRCL 50 ML/MIN; eGFR 64 ML/MIN
[2023-12-09 10:00] VITALS: BP 145/59; PULSE 64; RESP 16; TEMP 98.4; O2SAT 93
== END 2023-12-09 16:20 | DRG 69 ==
LOC: ER 23:33 → ED HOLD 12-06 07:27 → ORTHO 4S 12-06 10:18
PROVIDERS: ADMIT Family Medicine; ATTEND Family Medicine
PROC: B3251ZZ Computerized Tomography (CT Scan) of Bilateral Common Carotid Arteries using Low Osmolar Contrast (ICD-10-PCS; principal; 2023-12-06)
PROC: B32G1ZZ Computerized Tomography (CT Scan) of Bilateral Vertebral Arteries using Low Osmolar Contrast (ICD-10-PCS; 2023-12-06)
PROC: B32R1ZZ Computerized Tomography (CT Scan) of Intracranial Arteries using Low Osmolar Contrast (ICD-10-PCS; 2023-12-06)
PROC: B3281ZZ Computerized Tomography (CT Scan) of Bilateral Internal Carotid Arteries using Low Osmolar Contrast (ICD-10-PCS; 2023-12-06)
DX: G45.9 Transient cerebral ischemic attack, unspecified (principal); N17.0 Acute kidney failure with tubular necrosis; F03.90 Unspecified dementia, unspecified severity, without behavioral disturbance, psychotic disturbance, mood disturbance, and anxiety; G43.909 Migraine, unspecified, not intractable, without status migrainosus; G89.29 Other chronic pain; M54.9 Dorsalgia, unspecified; I12.9 Hypertensive chronic kidney disease with stage 1 through stage 4 chronic kidney disease, or unspecified chronic kidney disease; N18.9 Chronic kidney disease, unspecified; R82.71 Bacteriuria; Z66 Do not resuscitate; Z86.73 Personal history of transient ischemic attack (TIA), and cerebral infarction without residual deficits; Z88.5 Allergy status to narcotic agent; Z88.0 Allergy status to penicillin; Z88.2 Allergy status to sulfonamides; Z95.0 Presence of cardiac pacemaker; Z90.49 Acquired absence of other specified parts of digestive tract; Z90.710 Acquired absence of both cervix and uterus
CPT/HCPCS: 36415; 70450; 70496; 70498; 70544; 70547; 70551; 70552; 71045; 80048; 80053; 80061; 80320; 81001; 82948; 83036; 83735; 83930; 84132; 85007; 85025; 85610; 85730; 86885; 86900; 86901; 87081; 87088; 92508; 92616; 93005; 93306; 93880; 97110; 97116; 97162; 97530; 99285; G0378; J2270; J7030; Q9967

== ENCOUNTER 2024-01-20 16:03 | Observation (INO) | payer MEDICARE ==
[~2024-01-20] VITALS: Ht 167.6 cm; Wt 68.2 kg
[~2024-01-20 16:03] MED LIST changes: -LISI20TA28 PO; +NO HOME MEDS
[2024-01-20 16:37] LABS: BASOPHILS # (AUTO) 0.1 X10'3 (0-0.2); BASOPHILS % (AUTO) 1.2 % (0-1); EOSINOPHILS # (AUTO) 0.2 X10'3 (0-0.9); EOSINOPHILS % (AUTO) 1.8 % (0-6); HEMATOCRIT 40.6 % (35.0-45.0); HEMOGLOBIN 14.1 g/dl (12.0-16.0); LYMPHOCYTES # (AUTO) 4.8 X10'3 (1.1-4.8); MEAN CORPUSCULAR HEMOGLOBIN 31.2 PG (27.0-31.0); MEAN CORPUSCULAR HGB CONC 34.8 g/dL (33.0-36.5); MEAN CORPUSCULAR VOLUME 89.7 FL (78-98); MEAN PLATELET VOLUME 9.1 FL (7.4-10.4); MONOCYTES # (AUTO) 0.9 X10'3 (0-0.9); NEUTROPHILS # (AUTO) 2.8 X10'3 (1.8-7.7); PLATELET COUNT 317 X10'3 (140-440); RED BLOOD COUNT 4.52 X10'6 (4.20-5.60); RED CELL DISTRIBUTION WIDTH 13.7 % (11.5-14.5); WHITE BLOOD COUNT 8.8 X10'3 (4.5-11.0)
[2024-01-20 16:42] LABS: ALBUMIN 3.8 G/DL (3.4-5.0); ANION GAP 9 (8-16); BLOOD UREA NITROGEN 12 MG/DL (7-18); BUN/CREATININE RATIO 12.2 (10.0-20.0); CHLORIDE 99 MMOL/L (99-107); CREATININE 0.98 MG/DL (0.40-0.90); GLUCOSE 89 MG/DL (70-104); SODIUM 134 MMOL/L (135-145); TOTAL CARBON DIOXIDE 26.3 MMOL/L (24-32); eCRCL 46 ML/MIN; eGFR 55 ML/MIN
[2024-01-20 16:44] LABS: POTASSIUM 4.3 MMOL/L (3.5-5.1)
[2024-01-20 16:56] LABS: TOTAL CELLS COUNTED 100
[2024-01-20 16:57] LABS: PLATELET ESTIMATE NORMAL
[2024-01-20 17:39] LABS: APTT 25 SECONDS (22-32); INR 0.9 INR; PROTHROMBIN TIME 9.9 SECONDS (9.0-12.0)
[2024-01-20] MEDS: morphine 4 MG/ML inj SYRINge IV ONE ×2 (20:45→20:50)
[2024-01-20] MEDS ORDERED: iohexol 350MG/ML 100ml bottle IV ONE (23:57)
[2024-01-21] MEDS ORDERED: magnesium Cl slow-release 64mg tablet PO PRN (02:25)
[2024-01-21] MEDS ORDERED: magnesium sulf-water 4G/100mL 100 ML IV PRN (02:25)
[2024-01-21] MEDS ORDERED: potassium Cl 20 mEq SR tablet PO PRN ×2 (02:25)
[2024-01-21] MEDS ORDERED: magnesium sulf-water 2g/50mL 50 ML IV PRN (02:25)
[2024-01-21] MEDS ORDERED: potassium Cl 40MEQ/1/2NS 520ml 520 ML IV PRN (02:25)
[2024-01-21] MEDS: normal saline 1000ml 1,000 ML IV ONE (06:18)
[2024-01-21] MEDS: K and/or MAG REPLACEMENT MC SCH (08:00)
[2024-01-21] MEDS: atorvastatin 20mg tablet PO SCH (09:17)
[2024-01-21] MEDS: clopidogrel 75mg tablet PO SCH (09:17)
[2024-01-21] MEDS: duloxetine 20mg capsule.DR PO SCH (09:18)
[2024-01-21] MEDS: aspirin 81mg, enteric-coated 1 TAB TABLET.DR PO SCH (09:18)
[2024-01-21] MEDS: amLODIPine 5mg tablet PO SCH (09:18)
[2024-01-21] MEDS: heparin, porcine 5000 units/ml vial SQ SCH (09:19)
[2024-01-21] MEDS: HYDROcodone/acetaminophen 5mg/325mg tablet PO PRN (10:13)
[2024-01-21] MEDS: LORazepam 2 mg/ml vial IV ONE (13:55)
[2024-01-21 15:38] VITALS: BP 149/59; PULSE 66; RESP 16; TEMP 98.4; O2SAT 96
[2024-01-21 18:00] VITALS: BP 134/54; PULSE 67; RESP 15; TEMP 97.7; O2SAT 97
[2024-01-21] MEDS: pregabalin 75mg capsule PO SCH (19:42)
[2024-01-21] MEDS: oxyCODONE/APAP 5-325mg tablet PO PRN (22:26)
[2024-01-21] MEDS: diphenhydrAMINE 50 mg/ml inj IV ONE (22:28)
[2024-01-21] MEDS: proCHLORperazine 10 MG/2 ml inj IV ONE (22:28)
[2024-01-21 22:30] VITALS: BP 150/53; PULSE 60; RESP 16; TEMP 97.3; O2SAT 95
[2024-01-22] VITALS (7 sets, daily range): BP systolic 115–140; BP diastolic 47–58; PULSE 60–68; RESP 12–20; TEMP 97.1–98.9; O2SAT 95–99
[2024-01-22 06:55] LABS: BASOPHILS # (AUTO) 0.1 X10'3 (0-0.2); BASOPHILS % (AUTO) 1.2 % (0-1); EOSINOPHILS # (AUTO) 0.2 X10'3 (0-0.9); EOSINOPHILS % (AUTO) 2.7 % (0-6); HEMOGLOBIN 12.6 g/dl (12.0-16.0); LYMPHOCYTES # (AUTO) 3.8 X10'3 (1.1-4.8); MEAN CORPUSCULAR HGB CONC 34.4 g/dL (33.0-36.5); NEUTROPHILS # (AUTO) 1.6 X10'3 (1.8-7.7); PLATELET COUNT 268 X10'3 (140-440)
[2024-01-22 06:57] LABS: HEMATOCRIT 36.6 % (35.0-45.0); LYMPHOCYTES % (AUTO) 61.9 % (21-51); MEAN CORPUSCULAR VOLUME 89.9 FL (78-98); MEAN PLATELET VOLUME 9.1 FL (7.4-10.4); MONOCYTES # (AUTO) 0.5 X10'3 (0-0.9); MONOCYTES % (AUTO) 8.6 % (2-12); NEUTROPHILS % (AUTO) 25.6 % (42-75); RED BLOOD COUNT 4.07 X10'6 (4.20-5.60); RED CELL DISTRIBUTION WIDTH 13.5 % (11.5-14.5); WHITE BLOOD COUNT 6.1 X10'3 (4.5-11.0)
[2024-01-22 07:37] LABS: ANION GAP 7 (8-16); BLOOD UREA NITROGEN 25 MG/DL (7-18); BUN/CREATININE RATIO 26.3 (10.0-20.0); CALCIUM 8.5 MG/DL (8.5-10.1); CHLORIDE 104 MMOL/L (99-107); CREATININE 0.95 MG/DL (0.40-0.90); GLUCOSE 88 MG/DL (70-104); MAGNESIUM 2.2 MG/DL (1.5-2.4); PHOSPHORUS 4.5 MG/DL (2.3-4.5); POTASSIUM 4.3 MMOL/L (3.5-5.1); SODIUM 136 MMOL/L (135-145); TOTAL CARBON DIOXIDE 25.4 MMOL/L (24-32); eCRCL 47 ML/MIN; eGFR 57 ML/MIN
[2024-01-22] MEDS ORDERED: morphine 2 MG/ML inj. syringe IV PRN (22:00)
[2024-01-23 06:00] VITALS: BP 129/49; PULSE 65; RESP 12; TEMP 96; O2SAT 96
[2024-01-23 07:24] LABS: BASOPHILS # (AUTO) 0.1 X10'3 (0-0.2); EOSINOPHILS # (AUTO) 0.2 X10'3 (0-0.9); EOSINOPHILS % (AUTO) 3.1 % (0-6); HEMATOCRIT 37.1 % (35.0-45.0); HEMOGLOBIN 12.7 g/dl (12.0-16.0); LYMPHOCYTES # (AUTO) 3.9 X10'3 (1.1-4.8); LYMPHOCYTES % (AUTO) 57.1 % (21-51); MEAN CORPUSCULAR HEMOGLOBIN 30.5 PG (27.0-31.0); MEAN CORPUSCULAR HGB CONC 34.2 g/dL (33.0-36.5); MEAN CORPUSCULAR VOLUME 89.4 FL (78-98); MEAN PLATELET VOLUME 9.4 FL (7.4-10.4); MONOCYTES # (AUTO) 0.6 X10'3 (0-0.9); NEUTROPHILS % (AUTO) 29.8 % (42-75); PLATELET COUNT 280 X10'3 (140-440); RED BLOOD COUNT 4.15 X10'6 (4.20-5.60); RED CELL DISTRIBUTION WIDTH 12.9 % (11.5-14.5); WHITE BLOOD COUNT 6.9 X10'3 (4.5-11.0)
[2024-01-23 07:33] LABS: ALBUMIN 3.2 G/DL (3.4-5.0); ANION GAP 7 (8-16); BLOOD UREA NITROGEN 26 MG/DL (7-18); BUN/CREATININE RATIO 26.5 (10.0-20.0); CALCIUM 8.4 MG/DL (8.5-10.1); CHLORIDE 101 MMOL/L (99-107); CREATININE 0.98 MG/DL (0.40-0.90); GLUCOSE 88 MG/DL (70-104); MAGNESIUM 2.1 MG/DL (1.5-2.4); PHOSPHORUS 4.4 MG/DL (2.3-4.5); POTASSIUM 4.4 MMOL/L (3.5-5.1); SODIUM 134 MMOL/L (135-145); TOTAL CARBON DIOXIDE 26.5 MMOL/L (24-32); eCRCL 46 ML/MIN; eGFR 55 ML/MIN
[2024-01-23 07:47] LABS: PLATELET ESTIMATE NORMAL; TOTAL CELLS COUNTED 100
[2024-01-23 08:00] VITALS: RESP 12; O2SAT 96
[2024-01-23 11:00] VITALS: BP 126/51; PULSE 60; RESP 17; TEMP 97; O2SAT 95
[2024-01-23] MEDS: LORazepam 2 mg/ml vial IV ONE (11:18)
[2024-01-23] MEDS ORDERED: CLOP75TA34 PO (12:00)
[2024-01-23] MEDS ORDERED: NOR5T PO (12:00)
[2024-01-23] MEDS ORDERED: ATOR20TA66 PO (12:00)
[2024-01-23] MEDS ORDERED: ASPI-1071 PO (12:00)
[2024-01-23] MEDS ORDERED: LYR75C PO (12:00)
[2024-01-23] MEDS ORDERED: DOXY100C2 PO (12:04)
[2024-01-23 12:53] LABS: CHOL/HDL RATIO 3.1 (0.00-4.99); CHOLESTEROL 154 MG/DL (0-200); HDL CHOLESTEROL 50 MG/DL (35-60); LDL CHOLESTEROL 88 MG/DL (50-100); TRIGLYCERIDES 103 MG/DL (20-135)
[2024-01-23 15:21] VITALS: RESP 19
== END 2024-01-23 17:00 | disposition home or self-care (01) ==
LOC: ER 16:04 → INTOOBSV 01-21 02:25 → ED HOLD 01-21 02:25 → EDBEDREQ 01-21 02:34 → PCU 3S 01-21 15:33
PROVIDERS: ADMIT Student in an Organized Health Care Education/Training Program; ATTEND Internal Medicine
DX: R53.1 Weakness (principal); I10 Essential (primary) hypertension; R20.2 Paresthesia of skin; M25.522 Pain in left elbow; G43.909 Migraine, unspecified, not intractable, without status migrainosus; G89.29 Other chronic pain; M19.90 Unspecified osteoarthritis, unspecified site; F17.210 Nicotine dependence, cigarettes, uncomplicated; I63.9 Cerebral infarction, unspecified; F03.90 Unspecified dementia, unspecified severity, without behavioral disturbance, psychotic disturbance, mood disturbance, and anxiety; Z86.73 Personal history of transient ischemic attack (TIA), and cerebral infarction without residual deficits; Z95.0 Presence of cardiac pacemaker; Z88.0 Allergy status to penicillin; Z88.2 Allergy status to sulfonamides; Z88.5 Allergy status to narcotic agent
CPT/HCPCS: 70450; 70496; 70498; 70551; 72141; 73080; 80048; 80061; 83735; 84100; 85007; 85610; 85730; 93005; 96361; 96372; 96374; 96375; 97161; 99285; A6213; G0378; 36415; 71045; 85025; 87081; 97116; 97530; J0780; J1200; J1644; J2060; J2270; J7030; Q9967

== ENCOUNTER 2025-02-17 05:25 | Inpatient (IN) | payer MEDICARE ==
[~2025-02-17] VITALS: Ht 165.1 cm; Wt 79.0 kg
[~2025-02-17 05:25] MED LIST changes: +ASPI-1265 PO; +ATOR20TA66 PO; +CLOP-32 PO; +KEP500T PO; +LEVO-65 PO; +LISI20TA28 PO
--- NOTE | 2025-02-17 07:39 | RADIOLOGY REPORT ---
CLINICAL HISTORY: CP TECHNIQUE: 1 view of the chest was obtained. WID: COMPARISON: DI CHEST,SINGLE VIEW on DOS: 02/05/25, DI CHEST,SINGLE VIEW on DOS: 01/20/24, DI CHEST,SINGLE VIEW on DOS: 12/06/23, DI CHEST,SINGLE VIEW on DOS: 08/17/23, CHEST,SINGLE VIEW on DOS: 08/28/22 FINDINGS: Lungs: clear Cardiomediastinal silhouette: normal in size. Left chest pacer with leads projecting over the right atrial appendage and right ventricle. Calcification of the aortic arch. Bones: No acute osseous abnormality. Imaged Upper Abdomen: unremarkable. IMPRESSION: NO ACUTE CARDIOPULMONARY PROCESS. Left chest pacer
--- NOTE | 2025-02-17 07:51 | Physician Documentation ---
History of Present Illness ~ Chief Complaint: Chest Pain Stated Complaint: SOB Time Seen by MD: 07:30 Primary Medical Doctor: NONE Mode of Arrival: EMS HPI 79-year-old female presenting with chest pain that started about 5 hours ago and woke her up from sleep. Patient reports the pain is pressure-like, severe and substernal. It does not radiate. Reports that has been constant since and worsening over the past hour. She otherwise denies any shortness of breath, fever, chills, headache, dizziness or any other associated symptoms. Medication Reconciliation Allergies: Coded Allergies: Penicillins (Verified Allergy, Intermediate, RASH, 12/05/23) Sulfa (Sulfonamide Antibiotics) (Verified Allergy, Intermediate, RASH, 12/05/23) codeine (Verified Allergy, Intermediate, RASH, 12/05/23) Scheduled Aspirin (Aspirin), 1 TAB PO DAILY Atorvastatin Calcium (Atorvastatin Calcium), 40 MG PO DAILY Clopidogrel Bisulfate (Plavix), 75 MG PO DAILY Levetiracetam (Keppra), 1 TAB PO Q12H Levofloxacin (Levofloxacin), 1 TAB PO DAILY Lisinopril (Lisinopril), 1 TAB PO DAILY Miscellaneous Medications Home Med List (No Home Medications), (Reported) Past Medical History Past Medical History: CVA/TIA/Stroke, Dementia, Headache, Migraine, Vertigo, Hypertension, Inflammatory Bowel Dz, UTI, Arthritis, Chronic Back Pain Past Surgical History: orthopedic surgeries, pacemaker Alcohol Use: None Drug Use: none Lives with: Family Lives In: Home Occupation: retired Review of Systems All Other Systems at this time: Reviewed and Negative Physical Exam Vital Signs: Temperature: 98.2, Source: Oral, Heart Rate: 60, Respiratory Rate: 16, BP: 169/96, Pulse Oximetry: 96, Weight: 79.000 Physical Exam I have reviewed the triage vitals. CONST: Well developed and well nourished. In no acute distress HENT: Head Atraumatic EYES: Pupils are equal, round and reactive to light. Normal conjunctiva NECK: Normal range of motion. Supple. CARDIO: Normal rate and regular rhythm. No murmurs, rubs, or gallops. S1, S2. Tenderness to palpation over the sternum PULM/CHEST: No respiratory distress. Lungs clear to auscultation. No wheeze ABD: Soft and nontender. Nondistended. Bowel sounds normal. No guarding. : Exam deferred MSK: No edema. No deformity. NEURO: Alert and oriented to person, place and time. Moving all extremities SKIN: Warm and dry. PSYCH: Normal mood and affect. Good eye contact. Progress Results/Orders Results/Orders Orders - OLIVERIO MCKNIGHT MD Nitroglycerin Sublingual Tab (Nitrostat (02/17/25 09:30) Completed Orders - OLIVERIO MCKNIGHT MD Nitroglycerin Sublingual Tab (Nitrostat (02/17/25 07:55) Electrocardiogram (02/17/25 ) Medications Received in ER Medications (Trade) Dose Ordered Sig/Daryl Route PRN Reason Start Time Stop Time Status Last Admin Dose Admin (Nitrostat SL tablet) 0.4 mg ONCE ONCE SL 02/17/25 07:55 02/17/25 07:56 DC 02/17/25 09:06 0.4 MG (Nitrostat SL tablet) 0.4 mg Q5MIN PRN SL chest pain 02/17/25 09:30 02/17/25 09:58 0.4 MG Sodium Chloride 1,000 ml @ 100 mls/hr Q10H IV 02/17/25 10:05 02/17/25 10:39 100 MLS/HR Vital Signs 02/17/25 02/17/25 02/17/25 02/17/25 05:34 05:44 08:59 09:07 Temp 98.2 98.2 Pulse 60 60 Resp 16 16 12 B/P (MAP) 169/96 153/72 (99) Pulse Ox 96 Laboratory Tests Test 02/17/25 08:22 02/17/25 08:41 White Blood Count 7.0 Red Blood Count 4.64 Hemoglobin 13.7 Hematocrit 41.1 Mean Corpuscular Volume 88.7 Mean Corpuscular Hemoglobin 29.6 Mean Corpuscular Hemoglobin Concent 33.4 Red Cell Distribution Width 13.2 Platelet Count 284 Mean Platelet Volume 9.7 Neutrophils (%) (Auto) 39.8 L Lymphocytes (%) (Auto) 46.2 Monocytes (%) (Auto) 10.3 Eosinophils (%) (Auto) 2.9 Basophils (%) (Auto) 0.8 Neutrophils # (Auto) 2.8 Lymphocytes # (Auto) 3.2 Monocytes # (Auto) 0.7 Eosinophils # (Auto) 0.2 Basophils # (Auto) 0.1 CBC Comment Sodium Level 139 Potassium Level 3.6 Chloride Level 103 Carbon Dioxide Level 29.0 Anion Gap 7 L Blood Urea Nitrogen 5 L Creatinine 0.93 H Estimated GFR/1.73 m2 58 BUN/Creatinine Ratio 5.4 L Glucose Level 99 Calcium Level 8.8 Total Bilirubin 0.5 Aspartate Amino Transf (AST/SGOT) 14 Alanine Aminotransferase (ALT/SGPT) 11 L Alkaline Phosphatase 110 Troponin I High Sensitivity 12 Pro-B-Type Natriuretic Peptide 138 148 Total Protein 7.1 Albumin 3.2 L Globulin 3.9 Albumin/Globulin Ratio 0.8 L Chemistry Comments Prothrombin Time 10.7 INR International Normalized Ratio 1.0 Activated Partial Thromboplast Time 30 Coagulation Comments Phosphorus Level 4.0 Magnesium Level 1.9 EKG/XRAY/CT/US/VASC/MRI EKG : Additional Comment EKG as interpreted by ED MD indicating Chest X-Ray : Additional Comments ED physician read: Slight cardiomegaly, normal bony structures, pacemaker and left upper chest, no infiltrates CLINICAL HISTORY: CP TECHNIQUE: 1 view of the chest was obtained. WID: COMPARISON: DI CHEST,SINGLE VIEW on DOS: 02/05/25, DI CHEST,SINGLE VIEW on DOS: 01/20/24, DI CHEST,SINGLE VIEW on DOS: 12/06/23, DI CHEST,SINGLE VIEW on DOS: 08/17/23, CHEST,SINGLE VIEW on DOS: 08/28/22 FINDINGS: Lungs: clear Cardiomediastinal silhouette: normal in size. Left chest pacer with leads projecting over the right atrial appendage and right ventricle. Calcification of the aortic arch. Bones: No acute osseous abnormality. Imaged Upper Abdomen: unremarkable. IMPRESSION: NO ACUTE CARDIOPULMONARY PROCESS. Left chest pacer Heart Score: Heart Score Response (Comments) Value History Moderate Suspicious 1 EKG Repolarization Disturb 1 Age >65 2 Risk Factors >3 or Hx ASHD 2 Troponin Normal limit 0 Total 6 Medical Decision Making Additional information obtaine: old records Findings 1 Heart Score: 6 Differential Dx:Considerations: Include: angina, aortic dissection, chest wall pain, cholelithiasis, CHF, costochondritis, esophageal reflux/spasm, gastritis, myocardial infarction, pericarditis, pleuritis, pancreatitis, pneumonia, pneumothorax, pulmonary embolus Additional Information 79-year-old female presenting with acute onset chest pain. The patient's EKG is grossly grossly unremarkable indicating atrial paced rhythm and a right bundle branch block but no ST elevations or other signs of ischemia. Patient did have significant chest pain but it improved with two rounds of nitroglycerin. She was given aspirin by EMS. Her workup as far as labs go is unremarkable at this time. The patient however is high risk given her history of CVA and has a heart score of six. She will require admission for further evaluation including ACS rule out and risk stratification. All chronic medical conditions and social determinants of health were considered. I reviewed all labs and imaging results. Patient will be admitted to the hospitalist service. Departure Disposition: ADMITTED INPATIENT Admitted to Inpatient Unit: to hospitalist Admission Level of Care: Med/Surg with Tele Impression: Primary Impression: Chest pain Condition: Guarded Referrals: NO PRIMARY CARE PROVIDER (PCP) Signature Scribe Signature: 1 Attestation: The note accurately reflects work and decisions made by me.Oliverio Otero MD 02/17/25 09:44 OLIVERIO MCKNIGHT MD Feb 17, 2025 07:51
--- NOTE | 2025-02-17 08:10 | ELECTROCARDIOGRAPH REPORT ---
[facility] Test Date: 2025-02-17 Test Time: 08:07:51 Pat Name: ÁNGEL FERGUSON Department: [facility]-ER Patient ID: [facility]-[id number] Room: [place] [address] Gender: F [employer] Adjustable Clerk: : 1945 Requested By: ANITRA NAIDU Order Number: [id number] Reading MD: Dr. Hung Renner Measurements Intervals [place] Rate: 60 P: 0 [place]: 155 QRS: 43 QRSD: 132 T: 7 QT: 435 QTc: 435 Interpretive Statements Atrial-paced rhythm Right bundle branch block Electronically Signed On 02-18-2025 11:18:[address] Hung Renner Please click the below link to view image of tracing.
[2025-02-17 08:53] LABS: MEAN PLATELET VOLUME 9.7 FL (7.4-10.4); RED CELL DISTRIBUTION WIDTH 13.2 % (11.5-14.5)
[2025-02-17 09:17] LABS: CREATININE 0.93 MG/DL (0.40-0.90); TOTAL CARBON DIOXIDE 29.0 MMOL/L (24-32); eCRCL 46 ML/MIN; eGFR 58 ML/MIN
[2025-02-17 09:18] LABS: PRO BRAIN NATRIURETIC PEPTIDE 138 PG/ML (0-450)
[2025-02-17] MEDS ORDERED: HYDROcodone/acetaminophen 5mg/325mg tablet PO PRN (10:05)
[2025-02-17] MEDS ORDERED: acetaminophen 650mg rectal suppository RC PRN (10:05)
[2025-02-17] MEDS ORDERED: ondansetron 4mg rapidly disintigrating tab PO PRN (10:05)
[2025-02-17] MEDS ORDERED: mag hydrox/Alum hydrox/simeth 30ml oral suspension PO PRN (10:05)
[2025-02-17] MEDS ORDERED: ondansetron/PF 4mg/2ml inj IV PRN (10:05)
[2025-02-17] MEDS ORDERED: HYDROmorphone inj. 0.5 MG/0.5 ML DISP.SYRIN IV PRN (10:05)
[2025-02-17] MEDS ORDERED: potassium Cl 20 mEq SR tablet PO PRN ×2 (10:05)
[2025-02-17] MEDS ORDERED: magnesium sulf-water 4G/100mL 100 ML IV PRN (10:05)
[2025-02-17] MEDS ORDERED: magnesium hydroxide 30ml (MOM) UD suspension PO PRN (10:05)
[2025-02-17] MEDS ORDERED: bisacodyl 10mg suppository rectal RC PRN (10:05)
[2025-02-17] MEDS ORDERED: magnesium sulf-water 2g/50mL 50 ML IV PRN (10:05)
[2025-02-17] MEDS ORDERED: potassium Cl 40MEQ/1/2NS 520ml 520 ML IV PRN (10:05)
[2025-02-17] MEDS ORDERED: HYDROcodone/acetaminophen 10/325mg tab PO PRN (10:05)
[2025-02-17] MEDS ORDERED: magnesium Cl slow-release 64mg tablet PO PRN (10:05)
--- NOTE | 2025-02-17 10:08 | HISTORY AND PHYSICAL ---
History & Physical Providers to Chief complaint, chest pain, shortness of breath ~ History of Present Illness Reason for Admit\Complaint: As above History of Present Illness This is a 79-year-old female with history of multiple medical problems including dyslipidemia, chronic kidney disease, hypoalbuminemia, hypertension uncontrolled, irritable bowel syndrome, seizure, CVA associated with residual left-sided weakness, dementia, migraine, multiple allergies, chronic pain syndrome, a right bundle branch block, CHF ejection fraction 72% associated with pulmonary hypertension February 06, 2025, pacemaker status, presented today to emergency department chief complaint chest pain associated with shortness of breath; in addition patient is presenting with chest pain that started about 5 hours ago and woke her up from sleep. Patient reports the pain is pressure- like, severe and substernal. It does not radiate. Reports that has been constant since and worsening over the past hour. She otherwise denies any shortness of breath, fever, chills, headache, dizziness or any other associated symptoms. Department patient was evaluated by physician was diagnosed with chest pain heart score six, decision was made to admit patient for further evaluation and treatment to rule out acute coronary syndrome, patient phlebotomy services representative is Dr. PALACIOS. No additional complaint or concern Allergies: Coded Allergies: Penicillins (Verified Allergy, Intermediate, RASH, 12/05/23) Sulfa (Sulfonamide Antibiotics) (Verified Allergy, Intermediate, RASH, 12/05/23) codeine (Verified Allergy, Intermediate, RASH, 12/05/23) Active prescriptions Reviewed reconciled Home Medications Home Medications Active Levofloxacin 500 Mg Tablet 1 Tab PO DAILY Keppra (Levetiracetam) 500 Mg Tablet 1 Tab PO Q12H 30 Days Lisinopril 20 Mg Tablet 1 Tab PO DAILY 30 Days Plavix (Clopidogrel Bisulfate) 75 Mg Tablet 75 Mg PO DAILY 30 Days Atorvastatin Calcium 20 Mg Tablet 40 Mg PO DAILY 30 Days Aspirin 81 Mg Tab.chew 1 Tab PO DAILY 30 Days Reported No Home Medications (Home Med List) Each Past Medical History Past Medical History As in HPI Past Surgical History Surgical History Comment HPI Family History Family History: Family history was reviewed; no changes noted. Past Social History Social History Comment Deny illicit drug abuse tobacco alcohol use live with the family good social support Health Maintenance Health Maintenance Noncontributory ROS ROS Constitutional : no fever , no chills, or weakness. No diaphoresis. Allergic/Immunologic, no lymphadenopathy, no hives, no skin eruptions. Eyes, no recent visual changes, no eye pain, no photophobia. Ears, nose, mouth, throat, no sore throat, no nosebleed, no ear pain. Cardiovascular, no palpitations, skipped beats, patient has chest pain, no peripheral edema, Respiratory, patient has dyspnea, orthopnea, no cough, hemoptysis, chest wall pain. Gastrointestinal, no abdominal pain, nausea, vomiting, constipation or diarrhea. : no dysuria, hematuria, pelvic pain, urethral d/c. Endocrine, no polyuria, polydipsia, recent unintentional weight gain or loss. Hematologic/Lymphatic, no petechiae, no enlarged lymph nodes, no bone pain. Integumentary, no rash, no skin lesions, Musculoskeletal, no muscle aches, or pain, no muscle cramps, no recent change in gait Neurological, no dizziness, no headache, no syncope, no paresthesia. Psychiatric, no delusions, visual hallucinations, or hearing hallucinations. ROS - in rest is as in HPI. Exam Vitals: Vital Signs Date Time Temp Pulse Resp B/P (MAP) Pulse Ox O2 Delivery O2 Flow Rate FiO2 02/17/25 09:07 98.2 60 12 153/72 (99) 02/17/25 05:34 96 Vital signs, stable ,afebrile. Pulse Oximetry reflects adequate oxygenation. BMI is 29, weight 79 kg General: well developed, well nourished. Awake , alert, and oriented x4, resting comfortably in the bed, in no acute distress . Skin: Warm, dry, no pallor, no rash or petechiae. HEENT: Atraumatic, normocephalic, EOMI, anicteric sclera B; pink conjunctiva; PERRLA, normal oropharynx, moist oral and nasal mucosa. Tympanic membrane , nose , throat clear. Neck: Trachea midline. Supple, full range of motion, no JVD, bruit , hepatojugular reflex , lymphadenopathy or masses, or other lesions Cardiac: Regular rhythm, regular rate no murmurs, rubs, or gallops. Normal S1 and S2, no S3 noticed. PMI is normal. Respiratory: Equal breath sounds bilaterally, no tachypnea; lungs clear to auscultation bilaterally, no wheezing ,rub or rales, or crackles. Chest wall is symmetric and without deformity. No signs of trauma. Chest wall is nontender. No signs of respiratory distress. Resonance is normal upon percussion bilaterally. Gastrointestinal: Abdomen symmetric, non-distended, soft, non-tender, normal bowel sounds x4 quadrant, normoactive, no hepatosplenomegaly , no masses , no bruit, no flank pain bilaterally. No voluntary guarding, rebound, or rigidity. No tenderness to percussion. No pulsatile masses. Equal femoral pulses. No Rodrigez's sign or McBurney point tenderness. Back; no CVA tenderness bilaterally, no deformities. Neck and back are without deformity as well. No tenderness noted on palpation of the spinous processes. Spinous processes are midline. Cervical, thoracic, and lumbar paraspinal muscles are not tender and are without spasm. : Not indicated Musculoskeletal: Extremities, normal range of motion, non-tender, muscle strength 5/5 x 4. Negative Homans signs bilaterally on lower extremity. Distal pulses full symmetrical, no clubbing, cyanosis , edema. Neurological: Speech is clear, alert, and oriented x 4. No motor or sensory deficit, deep tendon reflexes normal, cerebellar intact. Cranial nerves II-XII intact., except residual mild left-sided weakness present Psych: Alert and or appropriate, normal affect. Vascular: Good distal pulses, which are equal x4; capillary refill less than 2 seconds. Lymphatic, no lymphadenopathy. Diagnostic Data Last Recorded Lab Results: 02/17/[id number]/25821 Advance Care Planning Advanced Care plannin - 30 Minutes Additional Plan Assessment Chest pain precordial secondary to angina pectoris Pacemaker status Hypertension uncontrolled CHF, chronic, ejection fraction 72% associated with pulmonary hypertension February 06, 2025 History of CVA associated with residual left-sided weakness Multiple allergies A right bundle branch block Additional comorbidities, history of seizure, dementia, migraine, chronic kidney disease, hypoalbuminemia, chronic pain syndrome, Plan Serial troponin EKG Prn keep patient well hydrated euvolemic Control blood pressure IV Lasix prn PT evaluation and treatment Patient is on lisinopril nitroglycerin Plavix aspirin statin May need Casandra test Patient phlebotomy services representative Dr. KARMEN Desai reconciled home medications DVT gastropathy prophylaxis addressed Sepsis Screening Reassessment Date: Feb 17, 2025 Date of Service: Feb 17, 2025 Billing Provider: JEFERSON BERNSTEIN MD Common Visit Codes: 39794-[id number] INP/OBS CARE (HIGH) Secondary Visit Codes: 44505-[id number] CARE PLAN 30 MINUTES JEFERSON BERNSTEIN MD Feb 17, 2025 10:08
--- NOTE | 2025-02-17 10:56 | ELECTROCARDIOGRAPH REPORT ---
[facility] Test Date: 2025-02-17 Test Time: 05:35:13 Pat Name: ÁNGEL FERGUSON Department: EMERGENCY ROOM Patient ID: [facility]-[id number] Room: [place] [address] Gender: F [employer] Driver: ANAHY : 1945 Requested By: MIREYA MCKNIGHT Order Number: [id number] Reading MD: Dr. Hung Renner Measurements Intervals [place] Rate: 62 P: 0 [place]: 120 QRS: 3 QRSD: 156 T: -13 QT: 436 QTc: 443 Interpretive Statements Atrial-paced complexes Right bundle branch block Electronically Signed On 02-18-2025 11:18:[address] Hung Renner Please click the below link to view image of tracing.
[2025-02-17 11:11] LABS: APTT 30 SECONDS (22-32); INR 1.0 INR
[2025-02-17 11:20] LABS: PHOSPHORUS 4.0 MG/DL (2.3-4.5); PRO BRAIN NATRIURETIC PEPTIDE 148.0 PG/ML (0-450)
[2025-02-17 11:59] VITALS: BP 147/64; PULSE 14; RESP 14; TEMP 97.9; O2SAT 97
[2025-02-17 13:03] VITALS: RESP 14; O2SAT 98
[2025-02-17 15:30] VITALS: BP 127/62; PULSE 60; RESP 12; TEMP 98.6; O2SAT 99
[2025-02-17 18:00] VITALS: BP 131/68; PULSE 61; RESP 18; TEMP 98.6; O2SAT 98
[2025-02-17 20:00] VITALS: RESP 18; O2SAT 95
[2025-02-17] MEDS: K and/or MAG REPLACEMENT MC SCH (20:00)
[2025-02-17] MEDS: docusate sod 100mg capsule PO SCH (20:00)
[2025-02-17 22:00] VITALS: BP 141/76; PULSE 60; RESP 18; TEMP 98.5; O2SAT 95
[2025-02-18 02:00] VITALS: BP 157/62; PULSE 60; RESP 16; TEMP 98.4; O2SAT 95
[2025-02-18 06:31] LABS: MEAN PLATELET VOLUME 9.5 FL (7.4-10.4); RED CELL DISTRIBUTION WIDTH 12.9 % (11.5-14.5)
[2025-02-18 07:00] VITALS: BP 143/59; PULSE 60; RESP 18; TEMP 98.4; O2SAT 96
[2025-02-18 07:16] LABS: CREATININE 0.83 MG/DL (0.40-0.90); TOTAL CARBON DIOXIDE 25.9 MMOL/L (24-32); eCRCL 51 ML/MIN; eGFR 67 ML/MIN
[2025-02-18 11:00] VITALS: BP 145/62; PULSE 60; RESP 12; TEMP 98.5; O2SAT 96
--- NOTE | 2025-02-18 18:49 | DISCHARGE SUMMARY ---
Discharge Summary Providers to CC ~ Discharge Summary Admission Diagnosis: CP Hospital Course DATE OF ADMISSION: 02/17/2025 DATE OF DISCHARGE: 02/18/2025 Discharge Diagnosis\\Comment: Chest pain- mi ruled out Subacute TIA Seizures Hyperlipidemia Hypertension Operations\\Procedures: None Consultants: None Complications: None Condition on DC: Stable Continued Medications: Aspirin (Aspirin) 81 Mg Tab.chew 1 TAB PO DAILY for 30 Days, #30 TAB.CHEW Atorvastatin Calcium (Atorvastatin Calcium) 20 Mg Tablet 40 MG PO DAILY for 30 Days, #60 TAB Clopidogrel Bisulfate (Plavix) 75 Mg Tablet 75 MG PO DAILY for cva for 30 Days, #30 TAB 12 Refills Levetiracetam (Keppra) 500 Mg Tablet 1 TAB PO Q12H for 30 Days, #60 TAB 0 Refills Lisinopril (Lisinopril) 20 Mg Tablet 1 TAB PO DAILY for 30 Days, #30 TAB Discontinued Medications: Levofloxacin (Levofloxacin) 500 Mg Tablet 1 TAB PO DAILY, #5 TAB Discharge Summary: The patient is admitted by Dr. Christiano Dinero with the following HPI:"This is a 79-year-old female with history of multiple medical problems including dyslipid emia, chronic kidney disease, hypoalbuminemia, hypertension uncontrolled, irritable bowel syndrome, seizure, CVA associated with residual left-sided weakness, dementia, migraine, multiple allergies, chronic pain syndrome, a right bundle branch block, CHF ejection fraction 72% associated with pulmonary hypertension February 06, 2025, pacemaker status, presented today to emergency department chief complaint chest pain associated with shortness of breath; in addition patient is presenting with chest pain that started about 5 hours ago and woke her up from sleep. Patient reports the pain is pressure-like, severe and substernal. It does not radiate. Reports that has been constant since and worsening over the past hour. She otherwise denies any shortness of breath, fever, chills, headache, dizziness or any other associated symptoms. Department patient was evaluated by physician was diagnosed with chest pain heart score six, decision was made to admit patient for further evaluation and treatment to rule out acute coronary syndrome, patient accounts payable representative is Dr. PALACIOS. No additional complaint or concern." The patient's serial troponins were normal and the patient is chest pain had resolved I asked the patient she has a any chest pain on the morning of the and the patient denied any chest pain and stated she wanted to go home. She was declining IV placement and she did not want any care from nursing staff. I can not decipher anymore information from the patient on the etiology for chest pain and reviewing the EMR a appears the patient has a muscle skeletal chest wall component of her chest pain possibly costochondritis. There were no changes to the patient has home medications and the patient's blood pressure was stable during hospitalization Gen. No acute distress alert and oriented 4 Lungs clear to ascultation bilaterally, no wheezes rales or rhonchi appreciated Heart normal sinus rhythm no murmurs rubs or clicks noted Abdomen soft nontender bowel sounds are normoactive Lower extremities no clubbing cyanosis, nor edema appreciated bilaterally The patient felt ready to be discharged and was medically cleared to be discharged on 02/18/2025 The patient was seen and evaluated on day of discharge. Time spent on discharge 35 minutes *Problems/Diagnosis: (1) Chest pain Status: Acute Total Time Spent on D/C: Up to 30 Minutes Date of Service: Feb 18, 2025 Billing Provider: PASQUALE AVILA DO Common Visit Codes: [id number]/[id number] DISCH DAY <30MIN PASQUALE AVILA DO Feb 18, 2025 18:48
== END 2025-02-18 15:15 | disposition home or self-care (01) | DRG 206 ==
LOC: ER 05:26 → ED HOLD 10:07 → PCU 3S 11:49
PROVIDERS: ADMIT Family Medicine; ATTEND Family Medicine
DX: M94.0 Chondrocostal junction syndrome [Tietze] (principal); G45.9 Transient cerebral ischemic attack, unspecified; I27.20 Pulmonary hypertension, unspecified; I50.9 Heart failure, unspecified; I13.0 Hypertensive heart and chronic kidney disease with heart failure and stage 1 through stage 4 chronic kidney disease, or unspecified chronic kidney disease; F03.90 Unspecified dementia, unspecified severity, without behavioral disturbance, psychotic disturbance, mood disturbance, and anxiety; N18.9 Chronic kidney disease, unspecified; I69.354 Hemiplegia and hemiparesis following cerebral infarction affecting left non-dominant side; G43.909 Migraine, unspecified, not intractable, without status migrainosus; M54.9 Dorsalgia, unspecified; G89.4 Chronic pain syndrome; E78.5 Hyperlipidemia, unspecified; I45.10 Unspecified right bundle-branch block; Z79.82 Long term (current) use of aspirin; Z88.0 Allergy status to penicillin; Z88.2 Allergy status to sulfonamides; Z88.5 Allergy status to narcotic agent; Z95.0 Presence of cardiac pacemaker
CPT/HCPCS: 36415; 71045; 80053; 83735; 83880; 84100; 84484; 85025; 85610; 85730; 87081; 93005; 99285; G0378; J3490; J7030